=== PATIENT | female | born 1985 | race Caucasian/White ===

== ENCOUNTER 2018-05-16 17:48 | Inpatient (IN) | payer OTHER ==
[~2018-05-16] VITALS: Ht 170.2 cm; Wt 102.5 kg
[2018-05-17] MEDS ORDERED: D5%-LACTATED RINGERS 1,000 ML IV SCH (21:40)
[2018-05-17] MEDS ORDERED: OXYTOCIN 30U/ 0.9% NaCL 500ML 500 ML IV ONE (21:40)
[2018-05-17 21:52] VITALS: BP 120/86
[2018-05-17] MEDS ORDERED: PLEASE ENTER HEIGHT AND WEIGHT MC SCH (22:00)
[2018-05-17] MEDS ORDERED: FENTANYL PF 100 MCG/2ML IV PRN (22:00)
[2018-05-17] MEDS ORDERED: ONDANSETRON 2MG/ML, 2ML IVPush PRN (22:00)
[2018-05-17] MEDS ORDERED: ALUMINUM/MAG/SIMETHICONE 30 ML UDC PO PRN (22:00)
[2018-05-17] MEDS ORDERED: CALCIUM CARBONATE 500 MG TAB.CHEW PO PRN (22:00)
[2018-05-17] MEDS ORDERED: SODIUM CHLORIDE FLUSH 10ML SYR IVF PRN (22:00)
[2018-05-17] MEDS ORDERED: SODIUM CITRATE/CITRIC ACID 30 ML UDC PO PRN (22:00)
[2018-05-17] MEDS ORDERED: METOCLOPRAMIDE 5 MG/ML, 2ML IVPush PRN (22:00)
[2018-05-17 22:16] LABS: BASOPHILS # (AUTO) 0.07 x10^3/uL (0-0.1); BASOPHILS % (AUTO) 1 % (0-1); EOSINOPHILS # (AUTO) 0.05 x10^3/uL (0-0.4); EOSINOPHILS % (AUTO) 1 % (1-7); LYMPHOCYTES # (AUTO) 1.76 x10^3/uL (1-3.4); LYMPHOCYTES % (AUTO) 23 % (22-44); MD NO; MEAN CORPUSCULAR HEMOGLOBIN 30.5 pg (27.0-34.8); MEAN CORPUSCULAR HGB CONC 33.8 g/dL (32.4-35.8); MEAN CORPUSCULAR VOLUME 90.2 fL (80-100); MEAN PLATELET VOLUME 12.4 fL (7.4-10.4); MONOCYTES # (AUTO) 0.38 x10^3/uL (0.2-0.8); MONOCYTES % (AUTO) 5 % (2-9); NEUTROPHILS # (AUTO) 5.55 x10^3/uL (1.8-6.8); NEUTROPHILS % (AUTO) 71 % (42-75); PLATELET COUNT 168 x10^3/uL (130-400); RED BLOOD COUNT 4.26 x10^6/uL (3.82-5.3); RED CELL DISTRIBUTION WIDTH 12.6 % (9.6-15.2)
[2018-05-17] MEDS: LACTATED RINGERS 1,000 ML IV SCH (23:43)
[2018-05-18] MEDS ORDERED: MISOPROSTOL 25 MCG TABLET ONE ×3 (00:12→08:38)
[2018-05-18] MEDS: LACTATED RINGERS 1,000 ML IV SCH ×5 (04:25→21:26)
[2018-05-18] MEDS: MISOPROSTOL 25 MCG TABLET VG PRN ×2 (04:25→08:41)
[2018-05-18] MEDS ORDERED: OXYTOCIN 30U/ 0.9% NaCL 500ML 500 ML ONE (13:25)
[2018-05-18] MEDS ORDERED: OXYTOCIN 30U/ 0.9% NaCL 500ML 500 ML IV PRN (13:29)
[2018-05-18] MEDS ORDERED: FENTANYL PF 100 MCG/2ML ONE ×2 (17:50→19:07)
[2018-05-18] MEDS: FENTANYL PF 100 MCG/2ML IVPush PRN ×2 (17:51→19:09)
[2018-05-18] MEDS ORDERED: FENTANYL/BUPIV./NS/PF 250 ML EPIDCONT SCH (19:49)
[2018-05-18] MEDS ORDERED: FENTANYL/BUPIV./NS/PF 250 ML EPIDCONT ONE (19:56)
[2018-05-18] MEDS ORDERED: BUPIVACAINE/PF 0.25% ONE (19:56)
[2018-05-18] MEDS ORDERED: LACTATED RINGERS 1,000 ML IVBOLUS PRN (20:00)
[2018-05-18] MEDS ORDERED: EPHEDRINE 50 MG/ML, 1ML IVPush PRN (20:00)
[2018-05-18] MEDS ORDERED: NALOXONE 0.4 MG/ML, 1ML IVPush PRN (20:00)
[2018-05-19] MEDS: LACTATED RINGERS 1,000 ML IV SCH ×5 (01:36→19:16)
[2018-05-19] MEDS ORDERED: FENTANYL PF 100 MCG/2ML ONE ×2 (08:13→11:31)
[2018-05-19] MEDS ORDERED: BUPIVACAINE/PF 0.25% ONE (08:58)
[2018-05-19] MEDS ORDERED: OXYTOCIN 10 UNITS/ML, 1ML ONE (08:58)
[2018-05-19] MEDS ORDERED: WATER-INJECTION,STERILE 10 ML IV ONE (08:58)
[2018-05-19] MEDS ORDERED: LIDOCAINE-MPF 2% ,5ML ONE (08:58)
[2018-05-19] MEDS ORDERED: CEFAZOLIN 1,000 MG ONE (08:58)
[2018-05-19] MEDS ORDERED: PHENYLEPHRINE 10 MG/ML ONE (08:58)
[2018-05-19] MEDS ORDERED: EPHEDRINE 50 MG/ML, 1ML ONE (08:58)
[2018-05-19] MEDS ORDERED: morphine SULFATE/PF 0.5 MG/ML, 10ML ONE (08:59)
[2018-05-19] MEDS ORDERED: NEWBORN KIT ONE (09:02)
[2018-05-19] MEDS ORDERED: MEPERIDINE/PF 50 MG/ML ONE (09:12)
[2018-05-19] MEDS ORDERED: MISOPROSTOL 200 MCG TABLET PR PRN (09:30)
[2018-05-19] MEDS ORDERED: METOCLOPRAMIDE 5 MG/ML, 2ML IV PRN (09:30)
[2018-05-19] MEDS ORDERED: MEPERIDINE/PF 100 MG/ML IVPush PRN (09:30)
[2018-05-19] MEDS ORDERED: BISACODYL 10 MG SUPP PR PRN (09:30)
[2018-05-19] MEDS ORDERED: ACETAMINOPHEN 325 MG TABLET PO PRN (09:30)
[2018-05-19] MEDS ORDERED: CARBOPROST TROMETHAMINE 250 MCG/ML, 1ML IM PRN (09:30)
[2018-05-19] MEDS ORDERED: METHYLERGONOVINE 0.2 MG/ML IM PRN (09:30)
[2018-05-19] MEDS ORDERED: MEPERIDINE/PF 50 MG/ML IVPush PRN (09:30)
[2018-05-19] MEDS ORDERED: MEASLES,MUMPS&RUBELLA VACC/PF 0.5 ML SQ-VACC PRN (09:30)
[2018-05-19] MEDS ORDERED: DIPH,PERTUSS(ACELL),TET VAC/PF NC IM-VACC PRN (09:30)
[2018-05-19] MEDS ORDERED: GLYCERIN ADULT SUPP PR PRN (09:30)
[2018-05-19] MEDS ORDERED: ONDANSETRON 2MG/ML, 2ML IV PRN (09:30)
[2018-05-19] MEDS ORDERED: KETOROLAC 30 MG/1 ML ONE (10:32)
[2018-05-19] MEDS: KETOROLAC 30 MG/1 ML IV SCH ×3 (10:35→22:31)
[2018-05-19] MEDS: OXYTOCIN 30U/ 0.9% NaCL 500ML 500 ML IV SCH ×2 (10:36→19:16)
[2018-05-19 12:05] VITALS: BP 104/68
[2018-05-19] MEDS: OXYcodone/APAP 5/325MG TABLET PO PRN ×2 (13:54→19:58)
[2018-05-19 15:58] VITALS: BP 98/67
[2018-05-19 16:42] LABS: MEAN CORPUSCULAR HEMOGLOBIN 29.8 pg (27.0-34.8); MEAN CORPUSCULAR HGB CONC 33.1 g/dL (32.4-35.8); MEAN CORPUSCULAR VOLUME 89.9 fL (80-100); MEAN PLATELET VOLUME 11.8 fL (7.4-10.4); PLATELET COUNT 155 x10^3/uL (130-400); RED BLOOD COUNT 3.68 x10^6/uL (3.82-5.3); RED CELL DISTRIBUTION WIDTH 12.4 % (9.6-15.2)
[2018-05-19 16:59] LABS: MD YES
[2018-05-19 17:02] LABS: <PLATELET ESTIMATE> ADEQUATE; <RBC MORPHOLOGY> NORMAL; BAND#(MANUAL) 1.47 x10^3/uL; BANDS%(MANUAL) 10 % (0-7); LYMPH#(MANUAL) 0.88 x10^3/uL (1-3.4); LYMPHS% (MANUAL) 6 % (22-44); MONOS#(MANUAL) 0.59 x10^3/uL (0.3-2.7); MONOS% (MANUAL) 4 % (2-9); SEG#(MANUAL) 11.76 x10^3/uL (1.8-6.8); SEGS% (MANUAL) 80 % (42-75)
[2018-05-19 17:03] LABS: <PLT MORPHOLOGY> NORMAL PLT MORPH
[2018-05-19 19:55] VITALS: BP 108/75
[2018-05-20 00:05] VITALS: BP 103/66
[2018-05-20] MEDS: OXYcodone/APAP 5/325MG TABLET PO PRN ×4 (00:10→13:32)
[2018-05-20] MEDS: LACTATED RINGERS 1,000 ML IV SCH ×5 (01:16→17:16)
[2018-05-20] MEDS: KETOROLAC 30 MG/1 ML IV SCH ×4 (04:44→17:30)
[2018-05-20 04:45] VITALS: BP 99/66
[2018-05-20] MEDS: OXYTOCIN 30U/ 0.9% NaCL 500ML 500 ML IV SCH ×2 (05:16→15:16)
[2018-05-20 07:40] VITALS: BP 117/81
[2018-05-20] MEDS: PRENATAL VIT/IRON/FA 1 EACH TABLET PO SCH (09:12)
[2018-05-20] MEDS: DOCUSATE 100 MG CAPSULE PO PRN ×2 (09:12→23:56)
[2018-05-20] MEDS: IBUPROFEN 600 MG TABLET PO PRN ×2 (17:17→23:56)
[2018-05-20 20:00] VITALS: BP 119/80
[2018-05-21] MEDS: OXYTOCIN 30U/ 0.9% NaCL 500ML 500 ML IV SCH ×2 (01:16→11:16)
[2018-05-21] MEDS: LACTATED RINGERS 1,000 ML IV SCH ×4 (01:16→11:16)
[2018-05-21] MEDS: IBUPROFEN 600 MG TABLET PO PRN ×2 (06:19→12:39)
[2018-05-21] MEDS: OXYcodone/APAP 5/325MG TABLET PO PRN ×2 (06:19→12:39)
[2018-05-21 07:58] VITALS: BP 130/81
[2018-05-21] MEDS: PRENATAL VIT/IRON/FA 1 EACH TABLET PO SCH (08:52)
[2018-05-21] MEDS: DOCUSATE 100 MG CAPSULE PO PRN (08:52)
[2018-05-21] MEDS ORDERED: OXYC-302 PO (10:13)
[2018-05-21] MEDS ORDERED: IBUP-1222 PO (10:14)
== END 2018-05-21 12:55 | disposition home or self-care (01) | DRG 766 ==
LOC: LDIP 05-17 21:09 → 2NW 05-19 11:48
PROVIDERS: ADMIT Obstetrics & Gynecology; ATTEND Obstetrics & Gynecology
PROC: 10D00Z1 Extraction of Products of Conception, Low, Open Approach (ICD-10-PCS; principal; 2018-05-19)
DX: O24.420 Gestational diabetes mellitus in childbirth, diet controlled (principal); O62.1 Secondary uterine inertia; O76 Abnormality in fetal heart rate and rhythm complicating labor and delivery; Z37.0 Single live birth; Z3A.40 40 weeks gestation of pregnancy
CPT/HCPCS: 36415; 82803; 82947; 82962; 85025; 86850; 86900; 90715; J0690; J1885; J2175; J2274; J3010; J3490; J2370; J2590; J7120

== ENCOUNTER 2018-06-03 16:05 | Inpatient (IN) | payer OTHER ==
[~2018-06-03] VITALS: Ht 170.2 cm; Wt 97.0 kg
[~2018-06-03 16:05] MED LIST: IBUP-1222 PO; OXYC-302 PO
[2018-06-03] MEDS ORDERED: FAMOTIDINE 20 MG/2 ML ONE (16:43)
[2018-06-03] MEDS ORDERED: MAALOX/HYOSCYAMINE/LIDOCAINE 45 ML BTL ONE (16:43)
[2018-06-03] MEDS ORDERED: MORPHINE SULFATE 4 MG/ML, 1ML ONE ×2 (16:43→17:28)
[2018-06-03] MEDS ORDERED: ONDANSETRON ODT 4 MG ONE ×2 (16:44→16:45)
[2018-06-03] MEDS: MORPHINE SULFATE 4 MG/ML, 1ML IVPush PRN ×2 (16:51→17:37)
[2018-06-03 16:52] LABS: MEAN CORPUSCULAR HEMOGLOBIN 30.7 pg (27.0-34.8); MEAN CORPUSCULAR HGB CONC 34.3 g/dL (32.4-35.8); MEAN CORPUSCULAR VOLUME 89.4 fL (80-100); MEAN PLATELET VOLUME 9.3 fL (7.4-10.4); PLATELET COUNT 463 x10^3/uL (130-400); RED BLOOD COUNT 5.14 x10^6/uL (3.82-5.3); RED CELL DISTRIBUTION WIDTH 13.1 % (9.6-15.2)
[2018-06-03 16:53] LABS: MD YES
[2018-06-03 17:00] LABS: ALANINE AMINOTRANSFERASE 68 U/L (12-78); ALBUMIN 3.6 g/dL (3.4-5.0); ANION GAP 10 mmol/L (5-15); CALCIUM 8.9 mg/dL (8.5-10.1); CHLORIDE 107 mmol/L (98-107); CREATININE 1.03 mg/dL (0.55-1.02)
[2018-06-03] MEDS ORDERED: FAMOTIDINE 20 MG/2 ML IVP ONE (17:00)
[2018-06-03] MEDS ORDERED: ONDANSETRON ODT 4 MG PO ONE (17:00)
[2018-06-03] MEDS ORDERED: MAALOX/HYOSCYAMINE/LIDOCAINE 45 ML BTL PO ONE (17:00)
[2018-06-03] MEDS ORDERED: SODIUM CHLORIDE FLUSH 10ML SYR IVF ONE (17:00)
[2018-06-03 17:02] LABS: ALKALINE PHOSPHATASE 201 U/L (45-117); BILIRUBIN,TOTAL 1.4 mg/dL (0.2-1.0)
[2018-06-03 17:11] LABS: <PLATELET ESTIMATE> INCREASED; <PLT MORPHOLOGY> NORMAL PLT MORPH; <RBC MORPHOLOGY> NORMAL; BAND#(MANUAL) 1.86 x10^3/uL; BANDS%(MANUAL) 8 % (0-7); BASOS#(MANUAL) 0.23 x10^3/uL (0-0.1); BASOS% (MANUAL) 1 % (0-1); EOS#(MANUAL) 0.23 x10^3/uL (0.0-0.4); EOS% (MANUAL) 1 % (1-7); LYMPH#(MANUAL) 2.33 x10^3/uL (1-3.4); LYMPHS% (MANUAL) 10 % (22-44); MONOS#(MANUAL) 0.47 x10^3/uL (0.3-2.7); MONOS% (MANUAL) 2 % (2-9); SEG#(MANUAL) 18.17 x10^3/uL (1.8-6.8); SEGS% (MANUAL) 78 % (42-75)
[2018-06-03] MEDS ORDERED: HYDROmorphone 2 MG/ML, 1ML ONE (18:06)
[2018-06-03] MEDS ORDERED: HYDROmorphone 2 MG/ML, 1ML IVPush PRN (18:30)
[2018-06-03] MEDS ORDERED: BISACODYL 10 MG SUPP PR PRN (19:00)
[2018-06-03] MEDS: ONDANSETRON 2MG/ML, 2ML IVPush PRN (19:46)
[2018-06-03] MEDS: NS + 20MEQ KCL 1,000 ML IV SCH (19:46)
[2018-06-03] MEDS: HYDROmorphone 2 MG/ML, 1ML IVPush PRN ×3 (19:46→22:33)
[2018-06-03 22:12] LABS: CULTURE INDICATED? YES; MICROSCOPIC INDICATED
[2018-06-03] MEDS: PROMETHAZINE 25 MG/ML, 1ML IM PRN (22:31)
[2018-06-03 22:46] VITALS: BP 133/85
[2018-06-04] MEDS: HYDROmorphone 2 MG/ML, 1ML IVPush PRN ×10 (01:09→23:58)
[2018-06-04] MEDS: ONDANSETRON 2MG/ML, 2ML IVPush PRN ×4 (01:09→21:05)
[2018-06-04] MEDS: NS + 20MEQ KCL 1,000 ML IV SCH ×2 (01:11→05:45)
[2018-06-04 01:16] VITALS: BP 144/88
[2018-06-04] MEDS: PROMETHAZINE 25 MG/ML, 1ML IM PRN ×2 (02:07→11:22)
[2018-06-04 04:19] LABS: BASOPHILS # (AUTO) 0.01 x10^3/uL (0-0.1); BASOPHILS % (AUTO) 0 % (0-1); EOSINOPHILS % (AUTO) 0 % (1-7); LYMPHOCYTES # (AUTO) 0.64 x10^3/uL (1-3.4); LYMPHOCYTES % (AUTO) 5 % (22-44); MD NO; MEAN CORPUSCULAR HEMOGLOBIN 30.3 pg (27.0-34.8); MEAN CORPUSCULAR HGB CONC 33.4 g/dL (32.4-35.8); MEAN CORPUSCULAR VOLUME 90.7 fL (80-100); MEAN PLATELET VOLUME 9.2 fL (7.4-10.4); MONOCYTES # (AUTO) 0.42 x10^3/uL (0.2-0.8); MONOCYTES % (AUTO) 4 % (2-9); NEUTROPHILS # (AUTO) 10.73 x10^3/uL (1.8-6.8); NEUTROPHILS % (AUTO) 91 % (42-75); PLATELET COUNT 462 x10^3/uL (130-400); RED BLOOD COUNT 5.22 x10^6/uL (3.82-5.3)
[2018-06-04 04:30] LABS: ALBUMIN 3.2 g/dL (3.4-5.0); ANION GAP 7 mmol/L (5-15); CALCIUM 8.2 mg/dL (8.5-10.1); CHLORIDE 112 mmol/L (98-107)
[2018-06-04 04:35] LABS: ALANINE AMINOTRANSFERASE 88 U/L (12-78); ALKALINE PHOSPHATASE 214 U/L (45-117); BILIRUBIN,TOTAL 1.3 mg/dL (0.2-1.0); CHOL/HDL RATIO 6.3; CHOLESTEROL, TOTAL 271 mg/dL (140-239); CREATININE 1.06 mg/dL (0.55-1.02); HDL CHOL % 16 % (28-40); HDL CHOLESTEROL (DIRECT) 43 mg/dL (40-60); LDL CHOLESTEROL,CALCULATED 208 mg/dL (54-169); LDL/HDL RATIO 4.8 (0.5-3.0); TOTAL PROTEIN 7.2 g/dL (6.4-8.2); TRIGLYCERIDES 98 mg/dL (50-200); VLDL CHOLESTEROL 20 mg/dL (0-25)
[2018-06-04 07:42] VITALS: BP 145/88
[2018-06-04] MEDS: LACTATED RINGERS 1,000 ML IV SCH ×2 (12:09→18:01)
[2018-06-04 13:05] VITALS: BP 130/80
[2018-06-04 20:25] VITALS: BP 151/97
[2018-06-05 00:01] VITALS: BP 132/93
[2018-06-05] MEDS: LACTATED RINGERS 1,000 ML IV SCH ×4 (00:01→20:40)
[2018-06-05] MEDS: HYDROmorphone 2 MG/ML, 1ML IVPush PRN ×4 (02:54→12:09)
[2018-06-05] MEDS: ONDANSETRON 2MG/ML, 2ML IVPush PRN ×3 (02:54→20:11)
[2018-06-05 03:20] VITALS: BP 135/92
[2018-06-05 04:51] LABS: MEAN CORPUSCULAR HEMOGLOBIN 30.4 pg (27.0-34.8); MEAN CORPUSCULAR HGB CONC 33.3 g/dL (32.4-35.8); MEAN CORPUSCULAR VOLUME 91.5 fL (80-100); MEAN PLATELET VOLUME 10.1 fL (7.4-10.4); PLATELET COUNT 357 x10^3/uL (130-400); RED BLOOD COUNT 4.49 x10^6/uL (3.82-5.3); RED CELL DISTRIBUTION WIDTH 13.6 % (9.6-15.2)
[2018-06-05 05:03] LABS: ANION GAP 7 mmol/L (5-15); CALCIUM 7.9 mg/dL (8.5-10.1); CHLORIDE 109 mmol/L (98-107); CREATININE 0.76 mg/dL (0.55-1.02)
[2018-06-05 05:04] LABS: ALANINE AMINOTRANSFERASE 61 U/L (12-78); ALBUMIN 2.5 g/dL (3.4-5.0)
[2018-06-05 05:06] LABS: ALKALINE PHOSPHATASE 170 U/L (45-117); BILIRUBIN,TOTAL 0.7 mg/dL (0.2-1.0); TOTAL PROTEIN 5.9 g/dL (6.4-8.2)
[2018-06-05 05:16] LABS: MD YES
[2018-06-05 05:17] LABS: BAND#(MANUAL) 0.99 x10^3/uL; BANDS%(MANUAL) 5 % (0-7); LYMPH#(MANUAL) 0.99 x10^3/uL (1-3.4); LYMPHS% (MANUAL) 5 % (22-44); METAMYELOCYTES% (MANUAL) 2 % (0-1); MONOS% (MANUAL) 2 % (2-9); SEG#(MANUAL) 17.03 x10^3/uL (1.8-6.8); SEGS% (MANUAL) 86 % (42-75)
[2018-06-05 05:18] LABS: <PLATELET ESTIMATE> ADEQUATE; <PLT MORPHOLOGY> NORMAL PLT MORPH; <RBC MORPHOLOGY> NORMAL
[2018-06-05 07:11] VITALS: BP 132/87
[2018-06-05] MEDS ORDERED: PIPERACILLIN/TAZO/PMX 3.375GM 50 ML IV SCH (07:30)
[2018-06-05 09:19] VITALS: BP 132/89
[2018-06-05 11:57] LABS: MICROSCOPIC INDICATED
[2018-06-05 12:30] LABS: CULTURE INDICATED? NO
[2018-06-05 13:05] VITALS: BP 137/90
[2018-06-05] MEDS ORDERED: FENTANYL PF 100 MCG/2ML IVPush PRN (15:00)
[2018-06-05] MEDS: KETOROLAC 30 MG/1 ML IVPush PRN ×2 (15:06→20:40)
[2018-06-05] MEDS: ERTAPENEM 1 GM in SODIUM CHLORIDE 0.9% 50 ML IV SCH ×2 (15:27→16:02)
[2018-06-05] MEDS: INSULIN LISPRO 100 UNITS/ML, PEN SQ-INSULIN SCH ×2 (16:00→20:40)
[2018-06-05] MEDS: PENTOXIFYLLINE 400 MG TABLET.ER PO SCH ×2 (17:30→21:00)
[2018-06-05 19:38] VITALS: BP 124/84
[2018-06-06 01:02] VITALS: BP 127/87
[2018-06-06] MEDS: LACTATED RINGERS 1,000 ML IV SCH ×3 (02:27→22:29)
[2018-06-06] MEDS: KETOROLAC 30 MG/1 ML IVPush PRN ×2 (04:40→15:15)
[2018-06-06 04:44] LABS: MEAN CORPUSCULAR HEMOGLOBIN 30.1 pg (27.0-34.8); MEAN CORPUSCULAR HGB CONC 32.8 g/dL (32.4-35.8); MEAN CORPUSCULAR VOLUME 91.9 fL (80-100); MEAN PLATELET VOLUME 10.3 fL (7.4-10.4); PLATELET COUNT 279 x10^3/uL (130-400); RED BLOOD COUNT 4.04 x10^6/uL (3.82-5.3); RED CELL DISTRIBUTION WIDTH 13.8 % (9.6-15.2)
[2018-06-06 04:54] LABS: ANION GAP 5 mmol/L (5-15); CALCIUM 7.5 mg/dL (8.5-10.1); CHLORIDE 108 mmol/L (98-107)
[2018-06-06 04:57] LABS: ALANINE AMINOTRANSFERASE 33 U/L (12-78); ALKALINE PHOSPHATASE 128 U/L (45-117); BILIRUBIN,TOTAL 0.7 mg/dL (0.2-1.0); CREATININE 0.59 mg/dL (0.55-1.02); TOTAL PROTEIN 5.4 g/dL (6.4-8.2)
[2018-06-06 05:04] LABS: MD YES
[2018-06-06 05:06] LABS: <PLATELET ESTIMATE> ADEQUATE; <PLT MORPHOLOGY> NORMAL PLT MORPH; <RBC MORPHOLOGY> NORMAL; BAND#(MANUAL) 0.86 x10^3/uL; BANDS%(MANUAL) 5 % (0-7); LYMPH#(MANUAL) 0.69 x10^3/uL (1-3.4); LYMPHS% (MANUAL) 4 % (22-44); MONOS% (MANUAL) 7 % (2-9); SEG#(MANUAL) 14.45 x10^3/uL (1.8-6.8); SEGS% (MANUAL) 84 % (42-75)
[2018-06-06] MEDS ORDERED: POTASSIUM PHOSPHATE 44 MEQ in SODIUM CHLORIDE 0.9% 500 ML IV ONE (06:30)
[2018-06-06] MEDS: INSULIN LISPRO 100 UNITS/ML, PEN SQ-INSULIN SCH ×4 (07:00→20:39)
[2018-06-06] MEDS: PANTOPRAZOLE 40 MG IV IVPush SCH (07:53)
[2018-06-06] MEDS: PENTOXIFYLLINE 400 MG TABLET.ER PO SCH ×3 (07:55→20:45)
[2018-06-06 08:16] VITALS: BP 117/76
[2018-06-06] MEDS ORDERED: LACTATED RINGERS 1,000 ML IV SCH (12:00)
[2018-06-06 13:14] VITALS: BP 126/89
[2018-06-06 14:42] VITALS: BP 126/75
[2018-06-06] MEDS: ERTAPENEM 1 GM in SODIUM CHLORIDE 0.9% 50 ML IV SCH (15:44)
[2018-06-06] MEDS ORDERED: LACTATED RINGERS 500 ML IVBOLUS ONE (19:00)
[2018-06-06 19:37] VITALS: BP 125/77
[2018-06-06 22:25] VITALS: BP 118/72
[2018-06-06] MEDS: ACETAMINOPHEN 325 MG TABLET PO PRN (22:46)
[2018-06-07 02:05] VITALS: BP 115/75
[2018-06-07] MEDS: ONDANSETRON 2MG/ML, 2ML IVPush PRN ×2 (02:16→20:50)
[2018-06-07] MEDS: LACTATED RINGERS 1,000 ML IV SCH ×5 (02:18→20:46)
[2018-06-07 02:49] LABS: CLOSTRIDIUM DIFFICILE ANTIGEN NEGATIVE; CLOSTRIDIUM DIFFICILE TOXIN NEGATIVE (Negative)
[2018-06-07 05:08] LABS: MEAN CORPUSCULAR HEMOGLOBIN 29.8 pg (27.0-34.8); MEAN CORPUSCULAR HGB CONC 33.1 g/dL (32.4-35.8); MEAN CORPUSCULAR VOLUME 90.1 fL (80-100); MEAN PLATELET VOLUME 9.8 fL (7.4-10.4); PLATELET COUNT 277 x10^3/uL (130-400); RED BLOOD COUNT 3.73 x10^6/uL (3.82-5.3); RED CELL DISTRIBUTION WIDTH 13.6 % (9.6-15.2)
[2018-06-07 05:16] LABS: ALANINE AMINOTRANSFERASE 21 U/L (12-78); ALBUMIN 1.7 g/dL (3.4-5.0); ANION GAP 7 mmol/L (5-15); CALCIUM 7.2 mg/dL (8.5-10.1); CHLORIDE 108 mmol/L (98-107); CREATININE 0.45 mg/dL (0.55-1.02)
[2018-06-07 05:18] LABS: ALKALINE PHOSPHATASE 100 U/L (45-117); BILIRUBIN,TOTAL 0.6 mg/dL (0.2-1.0)
[2018-06-07 05:27] LABS: MD YES
[2018-06-07 05:29] LABS: <PLATELET ESTIMATE> ADEQUATE; <PLT MORPHOLOGY> NORMAL PLT MORPH; <RBC MORPHOLOGY> NORMAL; BAND#(MANUAL) 0.28 x10^3/uL; BANDS%(MANUAL) 2 % (0-7); LYMPH#(MANUAL) 1.14 x10^3/uL (1-3.4); LYMPHS% (MANUAL) 8 % (22-44); METAMYELOCYTES# (MANUAL) 0.14 x10^3/uL (0-0); METAMYELOCYTES% (MANUAL) 1 % (0-1); MONOS#(MANUAL) 0.43 x10^3/uL (0.3-2.7); MONOS% (MANUAL) 3 % (2-9); SEG#(MANUAL) 12.21 x10^3/uL (1.8-6.8); SEGS% (MANUAL) 86 % (42-75)
[2018-06-07] MEDS: INSULIN LISPRO 100 UNITS/ML, PEN SQ-INSULIN SCH ×4 (07:00→21:00)
[2018-06-07 07:30] VITALS: BP 124/77
[2018-06-07] MEDS: PENTOXIFYLLINE 400 MG TABLET.ER PO SCH (08:20)
[2018-06-07] MEDS: PANTOPRAZOLE 40 MG IV IVPush SCH (08:25)
[2018-06-07 12:58] VITALS: BP 119/75
[2018-06-07] MEDS: ERTAPENEM 1 GM in SODIUM CHLORIDE 0.9% 50 ML IV SCH (16:48)
[2018-06-07] MEDS: ENOXAPARIN 40 MG/0.4 ML SQ SCH (16:49)
[2018-06-07 20:11] VITALS: BP 119/72
[2018-06-07] MEDS: FAMOTIDINE 20 MG/2 ML IVPush SCH (20:50)
[2018-06-07] MEDS: ACETAMINOPHEN 325 MG TABLET PO PRN ×2 (20:50→22:40)
[2018-06-07] MEDS ORDERED: POTASSIUM PHOSPHATE 22 MEQ in SODIUM CHLORIDE 0.9% 500 ML IV ONE (22:00)
[2018-06-07] MEDS ORDERED: POTASSIUM CHLORIDE 10% 40 MEQ/30 ML UDC PO ONE (22:00)
[2018-06-07] MEDS: PROMETHAZINE 25 MG/ML, 1ML IM PRN (23:25)
[2018-06-08 01:31] VITALS: BP 115/75
[2018-06-08 04:42] LABS: ALBUMIN 1.7 g/dL (3.4-5.0); ANION GAP 6 mmol/L (5-15); CALCIUM 7.6 mg/dL (8.5-10.1); CHLORIDE 109 mmol/L (98-107); MEAN CORPUSCULAR HEMOGLOBIN 28.9 pg (27.0-34.8); MEAN CORPUSCULAR HGB CONC 32.5 g/dL (32.4-35.8); MEAN PLATELET VOLUME 10.4 fL (7.4-10.4); PLATELET COUNT 313 x10^3/uL (130-400); RED BLOOD COUNT 3.55 x10^6/uL (3.82-5.3); RED CELL DISTRIBUTION WIDTH 13.2 % (9.6-15.2)
[2018-06-08 04:46] LABS: ALANINE AMINOTRANSFERASE 19 U/L (12-78); ALKALINE PHOSPHATASE 94 U/L (45-117); BILIRUBIN,TOTAL 0.5 mg/dL (0.2-1.0); CREATININE 0.52 mg/dL (0.55-1.02); TOTAL PROTEIN 5.1 g/dL (6.4-8.2)
[2018-06-08 05:33] LABS: MD YES
[2018-06-08 05:36] LABS: <PLATELET ESTIMATE> ADEQUATE; <PLT MORPHOLOGY> NORMAL PLT MORPH; <RBC MORPHOLOGY> NORMAL; BAND#(MANUAL) 0.42 x10^3/uL; BANDS%(MANUAL) 3 % (0-7); LYMPHS% (MANUAL) 10 % (22-44); METAMYELOCYTES# (MANUAL) 0.14 x10^3/uL (0-0); METAMYELOCYTES% (MANUAL) 1 % (0-1); MONOS#(MANUAL) 0.84 x10^3/uL (0.3-2.7); MONOS% (MANUAL) 6 % (2-9); SEGS% (MANUAL) 80 % (42-75)
[2018-06-08 07:40] VITALS: BP 114/74
[2018-06-08] MEDS ORDERED: POTASSIUM PHOSPHATE 44 MEQ in SODIUM CHLORIDE 0.9% 500 ML IV ONE (08:00)
[2018-06-08] MEDS: SODIUM CHLORIDE 0.9% 1,000 ML IV SCH ×2 (08:24→16:32)
[2018-06-08] MEDS: FAMOTIDINE 20 MG/2 ML IVPush SCH ×2 (08:24→21:29)
[2018-06-08 13:29] VITALS: BP 115/71
[2018-06-08] MEDS ORDERED: LACTATED RINGERS 1,000 ML IV SCH (15:00)
[2018-06-08] MEDS: ERTAPENEM 1 GM in SODIUM CHLORIDE 0.9% 50 ML IV SCH (15:22)
[2018-06-08] MEDS: ENOXAPARIN 40 MG/0.4 ML SQ SCH (15:49)
[2018-06-08] MEDS ORDERED: SCOPOLAMINE PATCH, 1.5MG PATCH.TD72 TD ONE (16:12)
[2018-06-08] MEDS ORDERED: ACETAMINOPHEN 500 MG TABLET ONE (16:12)
[2018-06-08] MEDS ORDERED: MIDAZOLAM 1 MG/ML, 2ML ONE (16:20)
[2018-06-08] MEDS ORDERED: FENTANYL PF 250 MCG/5ML ONE (16:20)
[2018-06-08] MEDS ORDERED: ROCURONIUM 10MG/ML,5ML ONE (16:21)
[2018-06-08] MEDS ORDERED: SUCCINYLCHOLINE 20 MG/ML, 10ML ONE (16:21)
[2018-06-08] MEDS ORDERED: DEXAMETHASONE 4 MG/ML, 1ML ONE (16:21)
[2018-06-08] MEDS ORDERED: LIDOCAINE GEL 2%, 5ML ONE (16:22)
[2018-06-08] MEDS ORDERED: BUPIVACAINE/PF-EPI 0.5% 1:200K ONE (16:23)
[2018-06-08] MEDS ORDERED: PROPOFOL 10 MG/ML, 20ML ONE (16:28)
[2018-06-08] MEDS ORDERED: PHENYLEPHRINE 10 MG/ML ONE (16:28)
[2018-06-08] MEDS ORDERED: NEOSTIGMINE 1 MG/ML, 10ML ONE (16:28)
[2018-06-08] MEDS ORDERED: GLYCOPYRROLATE 0.2MG/1ML, 5ML ONE (16:28)
[2018-06-08] MEDS ORDERED: BUPIVACAINE/PF-EPI 0.5% 1:200K INFIL ONE (16:52)
[2018-06-08] MEDS ORDERED: LORazepam 2 MG/ML, 1ML ONE (17:38)
[2018-06-08] MEDS: LORazepam 2 MG/ML, 1ML IVPush PRN ×2 (17:40→17:50)
[2018-06-08] MEDS ORDERED: PROMETHAZINE 12.5 MG SUPP PR PRN (18:00)
[2018-06-08] MEDS ORDERED: MEPERIDINE/PF 25MG/0.5ML IVPush PRN (18:00)
[2018-06-08] MEDS ORDERED: hydrALAzine 20 MG/ML, 1ML IV PRN (18:00)
[2018-06-08] MEDS ORDERED: ONDANSETRON ODT 8 MG PO PRN (18:00)
[2018-06-08] MEDS ORDERED: PROMETHAZINE 25 MG/ML, 1ML IV PRN (18:00)
[2018-06-08] MEDS ORDERED: OXYcodone 5 MG/5 ML ORAL.SOL UDC PO PRN (18:00)
[2018-06-08] MEDS ORDERED: ALBUTEROL SULFATE 2.5 MG/3 ML NPPB PRN (18:00)
[2018-06-08] MEDS ORDERED: DIAZEPAM 5 MG/ML, 2ML IVPush PRN (18:00)
[2018-06-08] MEDS ORDERED: ONDANSETRON 2MG/ML, 2ML IV PRN (18:00)
[2018-06-08] MEDS ORDERED: LABETALOL 5MG/ML, 20ML IV PRN (18:00)
[2018-06-08] MEDS ORDERED: HYDROmorphone 1 MG/ML, 1ML IV PRN (18:00)
[2018-06-08] MEDS ORDERED: FENTANYL PF 100 MCG/2ML IV PRN (18:00)
[2018-06-08] MEDS ORDERED: MIDAZOLAM 1 MG/ML, 2ML IV PRN (18:00)
[2018-06-08] MEDS ORDERED: OXYcodone IR 5MG TABLET PO PRN (19:00)
[2018-06-08] MEDS: ACETAMINOPHEN 500 MG TABLET PO SCH (19:00)
[2018-06-09] MEDS: ACETAMINOPHEN 500 MG TABLET PO SCH ×4 (01:00→18:34)
[2018-06-09] MEDS: SODIUM CHLORIDE 0.9% 1,000 ML IV SCH ×2 (04:00→15:40)
[2018-06-09 04:31] LABS: MEAN CORPUSCULAR HGB CONC 32.7 g/dL (32.4-35.8); MEAN CORPUSCULAR VOLUME 88.7 fL (80-100); MEAN PLATELET VOLUME 9.7 fL (7.4-10.4); PLATELET COUNT 391 x10^3/uL (130-400); RED BLOOD COUNT 3.64 x10^6/uL (3.82-5.3)
[2018-06-09 04:41] LABS: ALANINE AMINOTRANSFERASE 32 U/L (12-78); ALBUMIN 1.7 g/dL (3.4-5.0); ANION GAP 6 mmol/L (5-15); CALCIUM 7.6 mg/dL (8.5-10.1); CHLORIDE 110 mmol/L (98-107); CREATININE 0.42 mg/dL (0.55-1.02)
[2018-06-09 04:43] LABS: ALKALINE PHOSPHATASE 108 U/L (45-117); BILIRUBIN,TOTAL 0.4 mg/dL (0.2-1.0); TOTAL PROTEIN 5.4 g/dL (6.4-8.2)
[2018-06-09 05:42] LABS: MD YES
[2018-06-09 05:45] LABS: <PLATELET ESTIMATE> ADEQUATE; <PLT MORPHOLOGY> NORMAL PLT MORPH; <RBC MORPHOLOGY> NORMAL; BAND#(MANUAL) 0.34 x10^3/uL; BANDS%(MANUAL) 2 % (0-7); LYMPH#(MANUAL) 0.34 x10^3/uL (1-3.4); LYMPHS% (MANUAL) 2 % (22-44); MONOS#(MANUAL) 1.03 x10^3/uL (0.3-2.7); MONOS% (MANUAL) 6 % (2-9); SEG#(MANUAL) 15.48 x10^3/uL (1.8-6.8); SEGS% (MANUAL) 90 % (42-75)
[2018-06-09] MEDS ORDERED: POTASSIUM CHLORIDE 20 MEQ TAB.ER.PRT PO ONE (07:30)
[2018-06-09] MEDS: IBUPROFEN 800 MG TABLET PO SCH ×3 (09:59→16:40)
[2018-06-09] MEDS: FAMOTIDINE 20 MG/2 ML IVPush SCH ×2 (10:00→22:18)
[2018-06-09 13:25] VITALS: BP 108/71
[2018-06-09] MEDS: ERTAPENEM 1 GM in SODIUM CHLORIDE 0.9% 50 ML IV SCH (15:39)
[2018-06-09] MEDS: ENOXAPARIN 40 MG/0.4 ML SQ SCH (15:40)
[2018-06-09 20:02] VITALS: BP 106/73
[2018-06-10] MEDS: ACETAMINOPHEN 500 MG TABLET PO SCH ×3 (01:00→12:01)
[2018-06-10 01:56] VITALS: BP 105/70
[2018-06-10 05:16] LABS: BASOPHILS # (AUTO) 0.09 x10^3/uL (0-0.1); BASOPHILS % (AUTO) 1 % (0-1); EOSINOPHILS # (AUTO) 0.09 x10^3/uL (0-0.4); EOSINOPHILS % (AUTO) 1 % (1-7); LYMPHOCYTES # (AUTO) 1.25 x10^3/uL (1-3.4); LYMPHOCYTES % (AUTO) 8 % (22-44); MD NO; MEAN CORPUSCULAR HGB CONC 33.8 g/dL (32.4-35.8); MEAN CORPUSCULAR VOLUME 88.7 fL (80-100); MEAN PLATELET VOLUME 9.6 fL (7.4-10.4); MONOCYTES # (AUTO) 1.04 x10^3/uL (0.2-0.8); MONOCYTES % (AUTO) 7 % (2-9); NEUTROPHILS # (AUTO) 12.68 x10^3/uL (1.8-6.8); NEUTROPHILS % (AUTO) 84 % (42-75); PLATELET COUNT 412 x10^3/uL (130-400); RED CELL DISTRIBUTION WIDTH 14.3 % (9.6-15.2)
[2018-06-10 05:25] LABS: CHLORIDE 109 mmol/L (98-107)
[2018-06-10] MEDS: IBUPROFEN 800 MG TABLET PO SCH ×2 (05:58→12:01)
[2018-06-10 06:00] LABS: ALANINE AMINOTRANSFERASE 28 U/L (12-78); ALBUMIN 1.7 g/dL (3.4-5.0); ALKALINE PHOSPHATASE 105 U/L (45-117); ANION GAP 6 mmol/L (5-15); BILIRUBIN,TOTAL 0.4 mg/dL (0.2-1.0); CALCIUM 7.3 mg/dL (8.5-10.1); TOTAL PROTEIN 4.8 g/dL (6.4-8.2)
[2018-06-10] MEDS ORDERED: POTASSIUM CHLORIDE 20 MEQ TAB.ER.PRT PO ONE (07:30)
[2018-06-10 08:01] VITALS: BP 101/67
[2018-06-10] MEDS: FAMOTIDINE 20 MG/2 ML IVPush SCH (08:07)
[2018-06-10] MEDS: SODIUM CHLORIDE 0.9% 1,000 ML IV SCH (08:08)
[2018-06-10 12:35] VITALS: BP 106/71
== END 2018-06-10 13:58 | disposition home or self-care (01) | DRG 769 ==
LOC: ED 17:34 → EDIP 18:00 → 3NW 18:38 → CCU 06-08 18:14 → 4NOR 06-09 13:32
PROVIDERS: ADMIT Hospitalist; ATTEND Hospitalist
PROC: 0T9B70Z Drainage of Bladder with Drainage Device, Via Natural or Artificial Opening (ICD-10-PCS; 2018-06-05)
PROC: 0FT44ZZ Resection of Gallbladder, Percutaneous Endoscopic Approach (ICD-10-PCS; principal; 2018-06-08 17:30)
DX: O99.63 Diseases of the digestive system complicating the puerperium (principal); K85.10 Biliary acute pancreatitis without necrosis or infection; E43 Unspecified severe protein-calorie malnutrition; J96.00 Acute respiratory failure, unspecified whether with hypoxia or hypercapnia; J98.11 Atelectasis; K56.7 Ileus, unspecified; R18.8 Other ascites; R79.89 Other specified abnormal findings of blood chemistry; O24.439 Gestational diabetes mellitus in the puerperium, unspecified control; R33.9 Retention of urine, unspecified; R65.10 Systemic inflammatory response syndrome (SIRS) of non-infectious origin without acute organ dysfunction; O99.285 Endocrine, nutritional and metabolic diseases complicating the puerperium; O25.3 Malnutrition in the puerperium; O99.53 Diseases of the respiratory system complicating the puerperium; E78.5 Hyperlipidemia, unspecified; E87.5 Hyperkalemia; K21.9 Gastro-esophageal reflux disease without esophagitis; Z68.33 Body mass index [BMI] 33.0-33.9, adult; D72.825 Bandemia
CPT/HCPCS: 36415; 99291; J3490; S0028; 71045; 74181; 76700; 80053; 80061; 81001; 82330; 82962; 83605; 83615; 83690; 83735; 84100; 85025; 87040; 87070; 87075; 87081; 87086; 87205; 87324; 88304; 93005; 93970; 96374; 96375; 96376; J1100; J1170; J1335; J1650; J1885; J2250; J2405; J2543; J2550; J2704; J2710; J3010; J3480; J7120; Q0162; C9113; J0330; J2060; J2370; J7030; J7040

== ENCOUNTER 2018-06-16 09:24 | Inpatient (IN) | payer OTHER ==
[~2018-06-16] VITALS: Ht 170.2 cm; Wt 100.9 kg
[2018-06-16] MEDS ORDERED: MORPHINE SULFATE 4 MG/ML, 1ML IVPush ONE (10:30)
[2018-06-16] MEDS ORDERED: SODIUM CHLORIDE FLUSH 10ML SYR IVF ONE (10:30)
[2018-06-16] MEDS ORDERED: SODIUM CHLORIDE 0.9% 1,000ML IVBOLUS ONE ×2 (10:30→12:00)
[2018-06-16] MEDS ORDERED: ONDANSETRON 2MG/ML, 2ML IVPush ONE (10:30)
[2018-06-16 10:35] LABS: MEAN CORPUSCULAR HEMOGLOBIN 29.4 pg (27.0-34.8); MEAN CORPUSCULAR HGB CONC 33.6 g/dL (32.4-35.8); MEAN CORPUSCULAR VOLUME 87.7 fL (80-100); RED CELL DISTRIBUTION WIDTH 14.6 % (9.6-15.2)
[2018-06-16 10:38] LABS: ALANINE AMINOTRANSFERASE 20 U/L (12-78); ALBUMIN 2.5 g/dL (3.4-5.0); ANION GAP 11 mmol/L (5-15); CALCIUM 8.7 mg/dL (8.5-10.1); CHLORIDE 103 mmol/L (98-107); CREATININE 0.57 mg/dL (0.55-1.02)
[2018-06-16] MEDS ORDERED: MORPHINE SULFATE 4 MG/ML, 1ML ONE (10:38)
[2018-06-16] MEDS ORDERED: ONDANSETRON 2MG/ML, 2ML ONE (10:38)
[2018-06-16 10:39] LABS: MD YES; MEAN PLATELET VOLUME 9.2 fL (7.4-10.4); PLATELET COUNT 506 x10^3/uL (130-400)
[2018-06-16 10:40] LABS: BAND#(MANUAL) 0.68 x10^3/uL; BANDS%(MANUAL) 4 % (0-7); EOS#(MANUAL) 0.17 x10^3/uL (0.0-0.4); EOS% (MANUAL) 1 % (1-7); LYMPH#(MANUAL) 2.21 x10^3/uL (1-3.4); LYMPHS% (MANUAL) 13 % (22-44); METAMYELOCYTES# (MANUAL) 0.17 x10^3/uL (0-0); METAMYELOCYTES% (MANUAL) 1 % (0-1); MONOS#(MANUAL) 0.34 x10^3/uL (0.3-2.7); MONOS% (MANUAL) 2 % (2-9); SEG#(MANUAL) 13.43 x10^3/uL (1.8-6.8); SEGS% (MANUAL) 79 % (42-75)
[2018-06-16 10:41] LABS: <RBC MORPHOLOGY> NORMAL; ALKALINE PHOSPHATASE 170 U/L (45-117); BILIRUBIN,TOTAL 0.5 mg/dL (0.2-1.0); TOTAL PROTEIN 7.6 g/dL (6.4-8.2)
[2018-06-16 10:42] LABS: <PLATELET ESTIMATE> INCREASED; <PLT MORPHOLOGY> NORMAL PLT MORPH
[2018-06-16] MEDS ORDERED: OMNIPAQUE 350 MG/ML, 100ML BOTTLE ONE (11:15)
[2018-06-16 12:03] LABS: MICROSCOPIC NOT IND
[2018-06-16 12:06] LABS: CULTURE INDICATED? NO
[2018-06-16 12:40] VITALS: BP 114/80
[2018-06-16] MEDS ORDERED: D5%-0.45% NACL 1,000 ML IV SCH (13:37)
[2018-06-16] MEDS ORDERED: ONDANSETRON 2MG/ML, 2ML IVPush PRN (14:00)
[2018-06-16] MEDS: CEFTRIAXONE 1,000 MG in SODIUM CHLORIDE 0.9% 50 ML IV SCH (14:26)
[2018-06-16] MEDS ORDERED: KETOROLAC 30 MG/1 ML IV ONE (14:30)
[2018-06-16] MEDS: HYDROmorphone 2 MG/ML, 1ML IVPush PRN ×2 (16:18→19:48)
[2018-06-16] MEDS: METRONIDAZOLE PMX 500MG/100ML 100 ML IV SCH (16:53)
[2018-06-16] MEDS: POTASSIUM CHLORIDE 10 MEQ in LACTATED RINGERS 1,000 ML IV SCH ×2 (18:39→22:19)
[2018-06-16 20:02] VITALS: BP 111/78
[2018-06-16] MEDS: FAMOTIDINE 20 MG/2 ML IVPush SCH (21:03)
[2018-06-17] MEDS: HYDROmorphone 2 MG/ML, 1ML IVPush PRN ×4 (00:34→12:23)
[2018-06-17] MEDS: POTASSIUM CHLORIDE 10 MEQ in LACTATED RINGERS 1,000 ML IV SCH ×4 (01:52→20:20)
[2018-06-17] MEDS: METRONIDAZOLE PMX 500MG/100ML 100 ML IV SCH ×3 (01:52→20:20)
[2018-06-17 01:59] VITALS: BP 101/68
[2018-06-17 07:20] VITALS: BP 109/72
[2018-06-17] MEDS ORDERED: FENTANYL PF 250 MCG/5ML ONE (07:55)
[2018-06-17] MEDS ORDERED: MIDAZOLAM 1 MG/ML, 2ML ONE (07:55)
[2018-06-17] MEDS ORDERED: INDOMETHACIN 50 MG SUPP.RECT ONE (09:54)
[2018-06-17] MEDS ORDERED: MEPERIDINE/PF 25MG/0.5ML IVPush PRN (10:00)
[2018-06-17] MEDS ORDERED: OXYcodone 5 MG/5 ML ORAL.SOL UDC PO PRN (10:00)
[2018-06-17] MEDS ORDERED: HYDROmorphone 1 MG/ML, 1ML IV PRN (10:00)
[2018-06-17] MEDS ORDERED: ONDANSETRON 2MG/ML, 2ML IVPush PRN (10:00)
[2018-06-17] MEDS ORDERED: hydrALAzine 20 MG/ML, 1ML IV PRN (10:00)
[2018-06-17] MEDS ORDERED: METOCLOPRAMIDE 5 MG/ML, 2ML IV PRN (10:00)
[2018-06-17] MEDS ORDERED: PROMETHAZINE 25 MG/ML, 1ML IV PRN (10:00)
[2018-06-17] MEDS ORDERED: KETOROLAC 30 MG/1 ML IV PRN (10:00)
[2018-06-17] MEDS ORDERED: ALBUTEROL SULFATE 2.5 MG/3 ML NPPB PRN (10:00)
[2018-06-17] MEDS ORDERED: LABETALOL 5MG/ML, 20ML IV PRN (10:00)
[2018-06-17] MEDS ORDERED: OMNIPAQUE 350 MG/ML, 50 ML BOTTLE ONE (10:10)
[2018-06-17] MEDS: FENTANYL PF 100 MCG/2ML IV PRN ×2 (10:25→10:40)
[2018-06-17] MEDS ORDERED: INDOMETHACIN 50 MG SUPP.RECT PR ONE (10:30)
[2018-06-17] MEDS ORDERED: LACTATED RINGERS 1,000 ML IVBOLUS ONE ×2 (10:30→11:30)
[2018-06-17] MEDS ORDERED: OXYcodone 5 MG/5 ML ORAL.SOL UDC ONE (10:36)
[2018-06-17] MEDS ORDERED: FENTANYL PF 100 MCG/2ML ONE (10:36)
[2018-06-17] MEDS ORDERED: DEXAMETHASONE 4 MG/ML, 1ML ONE (11:07)
[2018-06-17] MEDS ORDERED: ONDANSETRON 2MG/ML, 2ML ONE (11:07)
[2018-06-17] MEDS ORDERED: PROPOFOL 10 MG/ML, 20ML ONE (11:07)
[2018-06-17] MEDS ORDERED: SUCCINYLCHOLINE 20 MG/ML, 10ML ONE (11:07)
[2018-06-17] MEDS ORDERED: ROCURONIUM 10MG/ML,5ML ONE (11:07)
[2018-06-17] MEDS: FAMOTIDINE 20 MG/2 ML IVPush SCH ×2 (11:26→23:50)
[2018-06-17] MEDS ORDERED: D5%-0.45% NACL 1,000 ML IV SCH (13:37)
[2018-06-17] MEDS: CEFTRIAXONE 1,000 MG in SODIUM CHLORIDE 0.9% 50 ML IV SCH (14:09)
[2018-06-17 14:15] VITALS: BP 107/67
[2018-06-17 19:05] VITALS: BP 105/72
[2018-06-18] MEDS ORDERED: HYDROcodone/APAP 5/325 TABLET PO PRN
[2018-06-18 03:59] VITALS: BP 110/64
[2018-06-18] MEDS: METRONIDAZOLE PMX 500MG/100ML 100 ML IV SCH ×3 (04:19→19:48)
[2018-06-18 05:33] LABS: MEAN CORPUSCULAR HEMOGLOBIN 29.4 pg (27.0-34.8); MEAN CORPUSCULAR HGB CONC 33.2 g/dL (32.4-35.8); MEAN CORPUSCULAR VOLUME 88.4 fL (80-100); MEAN PLATELET VOLUME 9.3 fL (7.4-10.4); PLATELET COUNT 414 x10^3/uL (130-400); RED BLOOD COUNT 3.17 x10^6/uL (3.82-5.3); RED CELL DISTRIBUTION WIDTH 14.1 % (9.6-15.2)
[2018-06-18 05:40] LABS: ALBUMIN 1.7 g/dL (3.4-5.0); ANION GAP 6 mmol/L (5-15); CHLORIDE 106 mmol/L (98-107)
[2018-06-18 05:42] LABS: ALANINE AMINOTRANSFERASE 13 U/L (12-78); ALKALINE PHOSPHATASE 130 U/L (45-117); BILIRUBIN,TOTAL 0.3 mg/dL (0.2-1.0); CREATININE 0.55 mg/dL (0.55-1.02); TOTAL PROTEIN 5.4 g/dL (6.4-8.2)
[2018-06-18 05:56] LABS: BASOPHILS # (AUTO) 0.08 x10^3/uL (0-0.1); BASOPHILS % (AUTO) 1 % (0-1); EOSINOPHILS # (AUTO) 0.12 x10^3/uL (0-0.4); EOSINOPHILS % (AUTO) 1 % (1-7); LYMPHOCYTES # (AUTO) 1.84 x10^3/uL (1-3.4); LYMPHOCYTES % (AUTO) 10 % (22-44); MD SCAN; MONOCYTES # (AUTO) 0.88 x10^3/uL (0.2-0.8); MONOCYTES % (AUTO) 5 % (2-9); NEUTROPHILS # (AUTO) 15.88 x10^3/uL (1.8-6.8); NEUTROPHILS % (AUTO) 85 % (42-75)
[2018-06-18 06:48] VITALS: BP 101/65
[2018-06-18] MEDS: FAMOTIDINE 20 MG/2 ML IVPush SCH ×2 (09:56→21:34)
[2018-06-18] MEDS: POTASSIUM CHLORIDE 10 MEQ in LACTATED RINGERS 1,000 ML IV SCH (09:56)
[2018-06-18 12:21] VITALS: BP 107/73
[2018-06-18] MEDS: CEFTRIAXONE 1,000 MG in SODIUM CHLORIDE 0.9% 50 ML IV SCH (14:51)
[2018-06-18 19:00] VITALS: BP 114/78
[2018-06-18] MEDS: SODIUM CHLORIDE FLUSH 10ML SYR IVF SCH (21:44)
[2018-06-19 03:27] VITALS: BP 94/59
[2018-06-19] MEDS: METRONIDAZOLE PMX 500MG/100ML 100 ML IV SCH ×2 (04:42→12:55)
[2018-06-19 05:40] LABS: BASOPHILS # (AUTO) 0.09 x10^3/uL (0-0.1); BASOPHILS % (AUTO) 1 % (0-1); EOSINOPHILS # (AUTO) 0.16 x10^3/uL (0-0.4); EOSINOPHILS % (AUTO) 1 % (1-7); LYMPHOCYTES # (AUTO) 2.14 x10^3/uL (1-3.4); LYMPHOCYTES % (AUTO) 13 % (22-44); MD NO; MEAN CORPUSCULAR HEMOGLOBIN 28.8 pg (27.0-34.8); MEAN CORPUSCULAR HGB CONC 32.9 g/dL (32.4-35.8); MEAN CORPUSCULAR VOLUME 87.4 fL (80-100); MONOCYTES # (AUTO) 0.81 x10^3/uL (0.2-0.8); MONOCYTES % (AUTO) 5 % (2-9); NEUTROPHILS % (AUTO) 80 % (42-75); PLATELET COUNT 455 x10^3/uL (130-400); RED BLOOD COUNT 2.97 x10^6/uL (3.82-5.3); RED CELL DISTRIBUTION WIDTH 14.6 % (9.6-15.2)
[2018-06-19 05:49] LABS: CHLORIDE 105 mmol/L (98-107)
[2018-06-19 05:58] LABS: ALANINE AMINOTRANSFERASE 10 U/L (12-78); ALBUMIN 1.6 g/dL (3.4-5.0); ALKALINE PHOSPHATASE 111 U/L (45-117); ANION GAP 8 mmol/L (5-15); BILIRUBIN,TOTAL 0.5 mg/dL (0.2-1.0); CALCIUM 7.8 mg/dL (8.5-10.1); CREATININE 0.63 mg/dL (0.55-1.02); TOTAL PROTEIN 5.3 g/dL (6.4-8.2)
[2018-06-19 07:52] VITALS: BP 123/81
[2018-06-19] MEDS: FAMOTIDINE 20 MG/2 ML IVPush SCH (09:02)
[2018-06-19] MEDS: SODIUM CHLORIDE FLUSH 10ML SYR IVF SCH (09:03)
[2018-06-19 13:01] VITALS: BP 107/71
[2018-06-19] MEDS ORDERED: CEFD300C37 PO (13:53)
[2018-06-19] MEDS ORDERED: TRAM50TA2 PO (13:53)
[2018-06-19] MEDS ORDERED: METR500T PO (13:53)
[2018-06-19] MEDS: CEFTRIAXONE 1,000 MG in SODIUM CHLORIDE 0.9% 50 ML IV SCH (14:52)
[2018-06-19 15:49] VITALS: BP 120/75
== END 2018-06-19 16:25 | disposition home or self-care (01) | DRG 776 ==
LOC: ED 11:16 → EDIP 11:49 → 4NOR 12:28 → DCLOUNGE 06-19 16:14
PROVIDERS: ADMIT Internal Medicine; ATTEND Internal Medicine
PROC: 0F7D8DZ Dilation of Pancreatic Duct with Intraluminal Device, Via Natural or Artificial Opening Endoscopic (ICD-10-PCS; 2018-06-17)
PROC: BF111ZZ Fluoroscopy of Biliary and Pancreatic Ducts using Low Osmolar Contrast (ICD-10-PCS; 2018-06-17)
PROC: 0F798DZ Dilation of Common Bile Duct with Intraluminal Device, Via Natural or Artificial Opening Endoscopic (ICD-10-PCS; principal; 2018-06-17 09:00)
DX: O85 Puerperal sepsis (principal); E43 Unspecified severe protein-calorie malnutrition; K85.10 Biliary acute pancreatitis without necrosis or infection; K86.1 Other chronic pancreatitis; K86.3 Pseudocyst of pancreas; D64.9 Anemia, unspecified; O90.81 Anemia of the puerperium; O99.63 Diseases of the digestive system complicating the puerperium; O25.3 Malnutrition in the puerperium; Z68.34 Body mass index [BMI] 34.0-34.9, adult
CPT/HCPCS: 36415; 74330; 99285; S0028; 71045; 74177; 78226; 80053; 81003; 83605; 83690; 83735; 84100; 85025; 87040; 96374; 96375; J0696; J1100; J1170; J1885; J2250; J2405; J2704; J3010; J3480; Q9967; A9537; C1769; C1894; C2625; J0330; J7030; J7120

== ENCOUNTER 2018-06-23 17:07 | Inpatient (IN) | payer OTHER ==
[~2018-06-23] VITALS: Ht 170.2 cm; Wt 90.1 kg
[~2018-06-23 17:07] MED LIST changes: +CEFD300C37 PO; +METR500T PO; +TRAM50TA2 PO
[2018-06-23] MEDS ORDERED: ONDANSETRON 2MG/ML, 2ML ONE (18:11)
[2018-06-23] MEDS ORDERED: FAMOTIDINE 20 MG/2 ML ONE (18:11)
[2018-06-23] MEDS ORDERED: MORPHINE SULFATE 4 MG/ML, 1ML ONE ×2 (18:11→20:04)
[2018-06-23] MEDS: MORPHINE SULFATE 4 MG/ML, 1ML IVPush PRN ×2 (18:17→20:11)
[2018-06-23] MEDS ORDERED: ONDANSETRON 2MG/ML, 2ML IVPush ONE (18:30)
[2018-06-23] MEDS ORDERED: SODIUM CHLORIDE 0.9% 1,000ML IVBOLUS ONE (18:30)
[2018-06-23] MEDS ORDERED: FAMOTIDINE 20 MG/2 ML IVP ONE (18:30)
[2018-06-23] MEDS ORDERED: SODIUM CHLORIDE FLUSH 10ML SYR IVF ONE (18:30)
[2018-06-23 18:34] LABS: ALANINE AMINOTRANSFERASE 10 U/L (12-78); ALBUMIN 2.6 g/dL (3.4-5.0); ANION GAP 8 mmol/L (5-15); CALCIUM 8.9 mg/dL (8.5-10.1); CHLORIDE 103 mmol/L (98-107); CREATININE 0.72 mg/dL (0.55-1.02)
[2018-06-23 18:36] LABS: ALKALINE PHOSPHATASE 147 U/L (45-117); BILIRUBIN,TOTAL 0.4 mg/dL (0.2-1.0); TOTAL PROTEIN 7.8 g/dL (6.4-8.2)
[2018-06-23 18:44] LABS: MEAN CORPUSCULAR HEMOGLOBIN 28.8 pg (27.0-34.8); MEAN CORPUSCULAR HGB CONC 33.1 g/dL (32.4-35.8); MEAN CORPUSCULAR VOLUME 87.2 fL (80-100); MEAN PLATELET VOLUME 9.2 fL (7.4-10.4); PLATELET COUNT 646 x10^3/uL (130-400); RED CELL DISTRIBUTION WIDTH 14.8 % (9.6-15.2)
[2018-06-23 18:45] LABS: MD YES
[2018-06-23 18:47] LABS: <PLATELET ESTIMATE> INCREASED; <RBC MORPHOLOGY> NORMAL; LYMPH#(MANUAL) 1.36 x10^3/uL (1-3.4); LYMPHS% (MANUAL) 6 % (22-44); MONOS#(MANUAL) 0.45 x10^3/uL (0.3-2.7); MONOS% (MANUAL) 2 % (2-9); REACTIVE LYMPHS # (MANUAL) 0.23 x10^3/uL (0-0); REACTIVE LYMPHS % (MANUAL) 1 % (0-0); SEG#(MANUAL) 20.66 x10^3/uL (1.8-6.8); SEGS% (MANUAL) 91 % (42-75)
[2018-06-23 18:48] LABS: LARGE PLATELETS 1+
[2018-06-23 20:00] VITALS: BP 117/80
[2018-06-23] MEDS ORDERED: CEFTRIAXONE 1,000 MG in SODIUM CHLORIDE 0.9% 50 ML IV ONE (20:00)
[2018-06-23] MEDS ORDERED: METRONIDAZOLE PMX 500MG/100ML 100 ML IV ONE (20:00)
[2018-06-23] MEDS ORDERED: CEFTRIAXONE PMX 1GM/50ML 50 ML ONE (20:03)
[2018-06-23] MEDS ORDERED: METRONIDAZOLE PMX 500MG/100ML 100 ML ONE (20:03)
[2018-06-23] MEDS ORDERED: SODIUM CHLORIDE 0.9% 1,000 ML IV ONE (20:30)
[2018-06-23] MEDS ORDERED: CEFEPIME 2 GM in DEXTROSE 5% 100 ML IV SCH (21:00)
[2018-06-23] MEDS ORDERED: CEFEPIME 2 GM in SODIUM CHLORIDE 0.9% 100 ML IV SCH ×2 (21:37→22:00)
[2018-06-23] MEDS ORDERED: CEFTRIAXONE 1,000 MG in SODIUM CHLORIDE 0.9% 50 ML IV SCH (22:00)
[2018-06-23] MEDS: KETOROLAC 30 MG/1 ML IV PRN (22:18)
[2018-06-23] MEDS: ENOXAPARIN 40 MG/0.4 ML SQ SCH (22:19)
[2018-06-23] MEDS: LACTATED RINGERS 1,000 ML IV SCH (22:19)
[2018-06-24] MEDS: METRONIDAZOLE PMX 500MG/100ML 100 ML IV SCH ×3 (00:12→16:16)
[2018-06-24] MEDS: morphine SULFATE 10 MG/ML, 1ML IVPush PRN ×2 (00:12→08:18)
[2018-06-24 01:29] VITALS: BP 102/69
[2018-06-24 04:54] LABS: MEAN CORPUSCULAR HEMOGLOBIN 28.8 pg (27.0-34.8); MEAN CORPUSCULAR VOLUME 87.3 fL (80-100); MEAN PLATELET VOLUME 8.9 fL (7.4-10.4); PLATELET COUNT 444 x10^3/uL (130-400); RED BLOOD COUNT 3.12 x10^6/uL (3.82-5.3); RED CELL DISTRIBUTION WIDTH 14.9 % (9.6-15.2)
[2018-06-24 05:01] LABS: ALANINE AMINOTRANSFERASE 7 U/L (12-78); ANION GAP 8 mmol/L (5-15); CALCIUM 7.9 mg/dL (8.5-10.1); CHLORIDE 108 mmol/L (98-107); TRIGLYCERIDES 103 mg/dL (50-200)
[2018-06-24 05:04] LABS: ALKALINE PHOSPHATASE 130 U/L (45-117); BILIRUBIN,TOTAL 0.3 mg/dL (0.2-1.0); CREATININE 0.57 mg/dL (0.55-1.02); TOTAL PROTEIN 6.2 g/dL (6.4-8.2)
[2018-06-24] MEDS: LACTATED RINGERS 1,000 ML IV SCH ×2 (05:37→17:48)
[2018-06-24] MEDS: CEFEPIME 2 GM in DEXTROSE 5% 100 ML IV SCH ×3 (05:38→21:49)
[2018-06-24] MEDS: ONDANSETRON 2MG/ML, 2ML IVPush PRN ×3 (05:38→20:30)
[2018-06-24 05:47] LABS: MD YES
[2018-06-24 05:51] LABS: BAND#(MANUAL) 0.16 x10^3/uL; BANDS%(MANUAL) 1 % (0-7); BASOS#(MANUAL) 0.16 x10^3/uL (0-0.1); BASOS% (MANUAL) 1 % (0-1); EOS#(MANUAL) 0.16 x10^3/uL (0.0-0.4); EOS% (MANUAL) 1 % (1-7); LYMPH#(MANUAL) 1.43 x10^3/uL (1-3.4); LYMPHS% (MANUAL) 9 % (22-44); MONOS#(MANUAL) 0.64 x10^3/uL (0.3-2.7); MONOS% (MANUAL) 4 % (2-9); SEG#(MANUAL) 13.36 x10^3/uL (1.8-6.8); SEGS% (MANUAL) 84 % (42-75)
[2018-06-24 05:53] LABS: <PLATELET ESTIMATE> INCREASED; ANISOCYTOSIS 1+; LARGE PLATELETS 1+; POLYCHROMASIA 1+
[2018-06-24 08:08] VITALS: BP 113/76
[2018-06-24] MEDS ORDERED: morphine SULFATE 10 MG/ML, 1ML IV ONE (09:30)
[2018-06-24] MEDS: LORazepam 2 MG/ML, 1ML IVPush PRN ×2 (10:57→21:48)
[2018-06-24 13:38] VITALS: BP 113/79
[2018-06-24] MEDS: ACETAMINOPHEN 650 MG SUPP PR PRN ×2 (13:42→20:34)
[2018-06-24 19:15] VITALS: BP 124/73
[2018-06-24] MEDS: ENOXAPARIN 40 MG/0.4 ML SQ SCH (20:22)
[2018-06-25] MEDS: METRONIDAZOLE PMX 500MG/100ML 100 ML IV SCH ×3 (00:06→16:13)
[2018-06-25 01:33] VITALS: BP 111/77
[2018-06-25] MEDS: LACTATED RINGERS 1,000 ML IV SCH ×2 (05:10→18:10)
[2018-06-25] MEDS: ONDANSETRON 2MG/ML, 2ML IVPush PRN ×3 (05:15→23:46)
[2018-06-25] MEDS: CEFEPIME 2 GM in DEXTROSE 5% 100 ML IV SCH ×3 (05:25→22:04)
[2018-06-25] MEDS: LORazepam 2 MG/ML, 1ML IVPush PRN ×4 (05:44→20:11)
[2018-06-25 06:12] LABS: ALBUMIN 1.9 g/dL (3.4-5.0); ANION GAP 7 mmol/L (5-15); BASOPHILS # (AUTO) 0.07 x10^3/uL (0-0.1); BASOPHILS % (AUTO) 1 % (0-1); CHLORIDE 108 mmol/L (98-107); EOSINOPHILS # (AUTO) 0.01 x10^3/uL (0-0.4); EOSINOPHILS % (AUTO) 0 % (1-7); LYMPHOCYTES # (AUTO) 1.22 x10^3/uL (1-3.4); LYMPHOCYTES % (AUTO) 8 % (22-44); MD NO; MEAN CORPUSCULAR HEMOGLOBIN 28.1 pg (27.0-34.8); MEAN CORPUSCULAR HGB CONC 32.4 g/dL (32.4-35.8); MEAN CORPUSCULAR VOLUME 86.8 fL (80-100); MEAN PLATELET VOLUME 9.2 fL (7.4-10.4); MONOCYTES # (AUTO) 0.73 x10^3/uL (0.2-0.8); MONOCYTES % (AUTO) 5 % (2-9); NEUTROPHILS # (AUTO) 12.75 x10^3/uL (1.8-6.8); NEUTROPHILS % (AUTO) 86 % (42-75); PLATELET COUNT 402 x10^3/uL (130-400); RED BLOOD COUNT 2.98 x10^6/uL (3.82-5.3); RED CELL DISTRIBUTION WIDTH 14.8 % (9.6-15.2)
[2018-06-25 06:17] LABS: ALANINE AMINOTRANSFERASE 7 U/L (12-78); ALKALINE PHOSPHATASE 111 U/L (45-117); BILIRUBIN,TOTAL 0.6 mg/dL (0.2-1.0); CREATININE 0.56 mg/dL (0.55-1.02); TOTAL PROTEIN 6.2 g/dL (6.4-8.2)
[2018-06-25 06:49] VITALS: BP 123/83
[2018-06-25 12:39] VITALS: BP 109/72
[2018-06-25] MEDS: ACETAMINOPHEN 500 MG TABLET PO PRN (13:45)
[2018-06-25] MEDS: KETOROLAC 30 MG/1 ML IV PRN (13:45)
[2018-06-25 19:03] VITALS: BP 108/73
[2018-06-25] MEDS: ENOXAPARIN 40 MG/0.4 ML SQ SCH (20:59)
[2018-06-25 23:17] LABS: CLOSTRIDIUM DIFFICILE ANTIGEN NEGATIVE; CLOSTRIDIUM DIFFICILE TOXIN NEGATIVE (Negative)
[2018-06-26] MEDS: METRONIDAZOLE PMX 500MG/100ML 100 ML IV SCH ×3 (00:09→15:58)
[2018-06-26] MEDS: LORazepam 2 MG/ML, 1ML IVPush PRN ×3 (00:20→13:13)
[2018-06-26 01:22] VITALS: BP 115/73
[2018-06-26] MEDS: LACTATED RINGERS 1,000 ML IV SCH ×3 (02:39→08:15)
[2018-06-26] MEDS: KETOROLAC 30 MG/1 ML IV PRN (02:44)
[2018-06-26] MEDS ORDERED: PROMETHAZINE 25 MG/ML, 1ML IM ONE (03:00)
[2018-06-26] MEDS: CEFEPIME 2 GM in DEXTROSE 5% 100 ML IV SCH ×3 (06:36→21:48)
[2018-06-26 07:54] VITALS: BP 100/66
[2018-06-26] MEDS ORDERED: MORPHINE SULFATE 4 MG/ML, 1ML IVPush PRN ×2 (08:30)
[2018-06-26] MEDS: ONDANSETRON 2MG/ML, 2ML IVPush PRN (10:34)
[2018-06-26] MEDS ORDERED: PROMETHAZINE 25 MG/ML, 1ML IM PRN (11:30)
[2018-06-26] MEDS: FLORASTOR 250 MG CAPSULE PO SCH ×2 (13:13→21:48)
[2018-06-26 13:59] VITALS: BP 104/67
[2018-06-26] MEDS: ACETAMINOPHEN 500 MG TABLET PO PRN (16:02)
[2018-06-26 16:46] LABS: CRYPTOSPORIDIUM ANTIGEN Negative (Negative)
[2018-06-26 19:10] VITALS: BP 112/77
[2018-06-26] MEDS: ENOXAPARIN 40 MG/0.4 ML SQ SCH (21:00)
[2018-06-27] MEDS: METRONIDAZOLE PMX 500MG/100ML 100 ML IV SCH ×3 (00:07→19:37)
[2018-06-27] MEDS: ONDANSETRON 2MG/ML, 2ML IVPush PRN ×2 (02:06→08:29)
[2018-06-27 02:28] VITALS: BP 102/66
[2018-06-27 05:42] LABS: BASOPHILS # (AUTO) 0.09 x10^3/uL (0-0.1); BASOPHILS % (AUTO) 1 % (0-1); EOSINOPHILS # (AUTO) 0.13 x10^3/uL (0-0.4); EOSINOPHILS % (AUTO) 1 % (1-7); LYMPHOCYTES # (AUTO) 1.29 x10^3/uL (1-3.4); LYMPHOCYTES % (AUTO) 11 % (22-44); MD NO; MEAN CORPUSCULAR HEMOGLOBIN 28.8 pg (27.0-34.8); MEAN CORPUSCULAR HGB CONC 33.2 g/dL (32.4-35.8); MEAN CORPUSCULAR VOLUME 86.8 fL (80-100); MEAN PLATELET VOLUME 9.8 fL (7.4-10.4); MONOCYTES # (AUTO) 0.81 x10^3/uL (0.2-0.8); MONOCYTES % (AUTO) 7 % (2-9); NEUTROPHILS # (AUTO) 9.68 x10^3/uL (1.8-6.8); NEUTROPHILS % (AUTO) 81 % (42-75); PLATELET COUNT 377 x10^3/uL (130-400); RED BLOOD COUNT 3.05 x10^6/uL (3.82-5.3); RED CELL DISTRIBUTION WIDTH 14.9 % (9.6-15.2)
[2018-06-27 05:57] LABS: ALANINE AMINOTRANSFERASE 7 U/L (12-78); ALBUMIN 1.9 g/dL (3.4-5.0); ANION GAP 9 mmol/L (5-15); CALCIUM 8.3 mg/dL (8.5-10.1); CHLORIDE 110 mmol/L (98-107); CREATININE 0.46 mg/dL (0.55-1.02)
[2018-06-27 06:00] LABS: ALKALINE PHOSPHATASE 96 U/L (45-117); BILIRUBIN,TOTAL 0.3 mg/dL (0.2-1.0); PREALBUMIN 7.2 mg/dL (20.0-40.0); TOTAL PROTEIN 6.1 g/dL (6.4-8.2)
[2018-06-27] MEDS: CEFEPIME 2 GM in DEXTROSE 5% 100 ML IV SCH ×2 (06:11→18:35)
[2018-06-27 08:05] VITALS: BP 101/66
[2018-06-27] MEDS: FLORASTOR 250 MG CAPSULE PO SCH ×2 (08:29→19:38)
[2018-06-27] MEDS: DIPHENOXYLATE/ATROPINE TABLET PO PRN (12:57)
[2018-06-27] MEDS: LACTATED RINGERS 1,000 ML IV SCH ×2 (13:00→19:46)
[2018-06-27 14:00] VITALS: BP 107/71
[2018-06-27] MEDS ORDERED: LIDOCAINE-MPF 2%, 2ML ONE (18:01)
[2018-06-27] MEDS: ENOXAPARIN 40 MG/0.4 ML SQ SCH (19:46)
[2018-06-27 19:49] VITALS: BP 92/54
[2018-06-27] MEDS ORDERED: POTASSIUM CHLORIDE 20 MEQ TAB.ER.PRT PO ONE (21:30)
[2018-06-28 00:51] VITALS: BP 98/65
[2018-06-28] MEDS: CEFEPIME 2 GM in DEXTROSE 5% 100 ML IV SCH ×3 (02:40→19:31)
[2018-06-28] MEDS: METRONIDAZOLE PMX 500MG/100ML 100 ML IV SCH ×3 (03:26→21:22)
[2018-06-28] MEDS: DIPHENOXYLATE/ATROPINE TABLET PO PRN (04:00)
[2018-06-28 06:00] LABS: ALBUMIN 2.1 g/dL (3.4-5.0); ANION GAP 6 mmol/L (5-15); CHLORIDE 110 mmol/L (98-107)
[2018-06-28 06:02] LABS: BASOPHILS # (AUTO) 0.13 x10^3/uL (0-0.1); BASOPHILS % (AUTO) 1 % (0-1); EOSINOPHILS # (AUTO) 0.27 x10^3/uL (0-0.4); EOSINOPHILS % (AUTO) 3 % (1-7); LYMPHOCYTES # (AUTO) 1.34 x10^3/uL (1-3.4); LYMPHOCYTES % (AUTO) 13 % (22-44); MD NO; MEAN CORPUSCULAR HEMOGLOBIN 27.7 pg (27.0-34.8); MEAN CORPUSCULAR HGB CONC 32.1 g/dL (32.4-35.8); MEAN CORPUSCULAR VOLUME 86.3 fL (80-100); MEAN PLATELET VOLUME 10.1 fL (7.4-10.4); MONOCYTES # (AUTO) 0.63 x10^3/uL (0.2-0.8); MONOCYTES % (AUTO) 6 % (2-9); NEUTROPHILS % (AUTO) 77 % (42-75); PLATELET COUNT 418 x10^3/uL (130-400); RED BLOOD COUNT 3.06 x10^6/uL (3.82-5.3)
[2018-06-28 06:03] LABS: ALANINE AMINOTRANSFERASE 8 U/L (12-78); ALKALINE PHOSPHATASE 95 U/L (45-117); BILIRUBIN,TOTAL 0.2 mg/dL (0.2-1.0); CREATININE 0.56 mg/dL (0.55-1.02); TOTAL PROTEIN 6.3 g/dL (6.4-8.2)
[2018-06-28 07:17] VITALS: BP 101/64
[2018-06-28] MEDS: FLORASTOR 250 MG CAPSULE PO SCH ×2 (09:55→21:21)
[2018-06-28] MEDS: LACTATED RINGERS 1,000 ML IV SCH (09:55)
[2018-06-28 12:12] VITALS: BP 108/73
[2018-06-28] MEDS: MULTIVITAMINS WITH IRON TABLET PO SCH (16:46)
[2018-06-28 20:08] VITALS: BP 110/73
[2018-06-28] MEDS: ENOXAPARIN 40 MG/0.4 ML SQ SCH (21:00)
[2018-06-29 01:18] VITALS: BP 105/70
[2018-06-29] MEDS: CEFEPIME 2 GM in DEXTROSE 5% 100 ML IV SCH ×2 (02:12→12:02)
[2018-06-29] MEDS: METRONIDAZOLE PMX 500MG/100ML 100 ML IV SCH ×2 (02:58→10:56)
[2018-06-29] MEDS: LACTATED RINGERS 1,000 ML IV SCH ×2 (02:58→22:06)
[2018-06-29 04:37] LABS: ALANINE AMINOTRANSFERASE 7 U/L (12-78); ANION GAP 5 mmol/L (5-15); CALCIUM 8.2 mg/dL (8.5-10.1); CHLORIDE 109 mmol/L (98-107); CREATININE 0.41 mg/dL (0.55-1.02)
[2018-06-29 04:40] LABS: ALKALINE PHOSPHATASE 96 U/L (45-117); BILIRUBIN,TOTAL 0.3 mg/dL (0.2-1.0); TOTAL PROTEIN 6.1 g/dL (6.4-8.2)
[2018-06-29 07:48] VITALS: BP 124/84
[2018-06-29] MEDS: POTASSIUM CHLORIDE 20 MEQ TAB.ER.PRT PO SCH (08:03)
[2018-06-29] MEDS: MULTIVITAMINS WITH IRON TABLET PO SCH (08:04)
[2018-06-29] MEDS: FLORASTOR 250 MG CAPSULE PO SCH ×2 (08:04→20:30)
[2018-06-29 14:30] VITALS: BP 108/71
[2018-06-29] MEDS: ERTAPENEM 1 GM in SODIUM CHLORIDE 0.9% 50 ML IV SCH (16:06)
[2018-06-29 19:47] VITALS: BP 111/76
[2018-06-29] MEDS: ENOXAPARIN 40 MG/0.4 ML SQ SCH (20:31)
[2018-06-30 01:04] VITALS: BP 98/66
[2018-06-30] MEDS: LACTATED RINGERS 1,000 ML IV SCH ×2 (08:09→20:34)
[2018-06-30 08:11] VITALS: BP 112/76
[2018-06-30] MEDS: POTASSIUM CHLORIDE 20 MEQ TAB.ER.PRT PO SCH (09:50)
[2018-06-30] MEDS: FLORASTOR 250 MG CAPSULE PO SCH ×2 (09:50→20:34)
[2018-06-30] MEDS: MULTIVITAMINS WITH IRON TABLET PO SCH (09:50)
[2018-06-30 15:13] VITALS: BP 120/77
[2018-06-30] MEDS: ERTAPENEM 1 GM in SODIUM CHLORIDE 0.9% 50 ML IV SCH (16:11)
[2018-06-30 19:15] VITALS: BP 97/55
[2018-06-30] MEDS: ENOXAPARIN 40 MG/0.4 ML SQ SCH (20:35)
[2018-07-01 01:01] VITALS: BP 110/71
[2018-07-01] MEDS: LACTATED RINGERS 1,000 ML IV SCH ×2 (04:09→13:59)
[2018-07-01 07:20] VITALS: BP 116/76
[2018-07-01] MEDS: FLORASTOR 250 MG CAPSULE PO SCH ×2 (08:38→20:58)
[2018-07-01] MEDS: MULTIVITAMINS WITH IRON TABLET PO SCH (08:38)
[2018-07-01] MEDS: POTASSIUM CHLORIDE 20 MEQ TAB.ER.PRT PO SCH (08:38)
[2018-07-01 09:55] VITALS: BP 117/81
[2018-07-01 13:06] VITALS: BP 117/78
[2018-07-01] MEDS ORDERED: SIMETHICONE 125 MG CHEW TAB ONE (15:26)
[2018-07-01] MEDS ORDERED: SIMETHICONE 125 MG CHEW TAB PO ONE (15:30)
[2018-07-01] MEDS: ERTAPENEM 1 GM in SODIUM CHLORIDE 0.9% 50 ML IV SCH (16:21)
[2018-07-01] MEDS ORDERED: SIMETHICONE 125 MG CHEW TAB PO PRN (17:30)
[2018-07-01 19:15] VITALS: BP 106/70
[2018-07-01] MEDS: ENOXAPARIN 40 MG/0.4 ML SQ SCH (21:00)
[2018-07-02 01:28] VITALS: BP 108/76
[2018-07-02] MEDS: LACTATED RINGERS 1,000 ML IV SCH (04:12)
[2018-07-02 07:18] VITALS: BP 106/71
[2018-07-02] MEDS: FLORASTOR 250 MG CAPSULE PO SCH (08:52)
[2018-07-02] MEDS: POTASSIUM CHLORIDE 20 MEQ TAB.ER.PRT PO SCH (08:52)
[2018-07-02] MEDS: MULTIVITAMINS WITH IRON TABLET PO SCH (08:52)
[2018-07-02] MEDS ORDERED: ERTA1VIA4 IM/IV (10:32)
[2018-07-02] MEDS ORDERED: MULT1TAB81 PO (10:32)
[2018-07-02] MEDS ORDERED: Simethicone PO (10:32)
[2018-07-02 12:36] VITALS: BP 121/77
[2018-07-02] MEDS: ERTAPENEM 1 GM in SODIUM CHLORIDE 0.9% 50 ML IV SCH (14:52)
== END 2018-07-02 15:55 | disposition home health service (06) | DRG 776 ==
LOC: ED 19:38 → EDIP 20:08 → 3NE 21:00
PROVIDERS: ADMIT Hospitalist; ATTEND Hospitalist
PROC: 02HV33Z Insertion of Infusion Device into Superior Vena Cava, Percutaneous Approach (ICD-10-PCS; principal; 2018-06-27)
PROC: B548ZZA Ultrasonography of Superior Vena Cava, Guidance (ICD-10-PCS; 2018-06-27)
DX: O85 Puerperal sepsis (principal); K85.90 Acute pancreatitis without necrosis or infection, unspecified; K86.3 Pseudocyst of pancreas; K86.1 Other chronic pancreatitis; E87.1 Hypo-osmolality and hyponatremia; O25.3 Malnutrition in the puerperium; F43.21 Adjustment disorder with depressed mood; O99.345 Other mental disorders complicating the puerperium; O99.63 Diseases of the digestive system complicating the puerperium; O26.63 Liver and biliary tract disorders in the puerperium; K83.8 Other specified diseases of biliary tract; O99.285 Endocrine, nutritional and metabolic diseases complicating the puerperium; O90.81 Anemia of the puerperium; R32 Unspecified urinary incontinence; F53 Mental and behavioral disorders associated with the puerperium, not elsewhere classified; Z90.49 Acquired absence of other specified parts of digestive tract; Z83.3 Family history of diabetes mellitus; Z56.0 Unemployment, unspecified; Z82.49 Family history of ischemic heart disease and other diseases of the circulatory system
CPT/HCPCS: 36415; 74018; 77001; 87046; 99285; S0028; 36569; 71045; 76700; 76937; 80053; 83690; 83735; 84100; 84134; 84478; 85025; 87040; 87324; 87328; 87329; 89055; 93005; 96361; 96374; 96375; 96376; J0696; J1335; J1650; J1885; J2270; J2405; J2550; J3490; C1751; J2060; J7030; J7120

== ENCOUNTER 2018-07-19 05:37 | Day surgery (SDC) | payer OTHER ==
[~2018-07-19] VITALS: Ht 170.2 cm; Wt 80.0 kg
[~2018-07-19 05:37] MED LIST changes: +ERTA1VIA4 IM/IV; +MULT1TAB81 PO; +Simethicone PO
[2018-07-19 06:53] VITALS: BP 117/90
[2018-07-19] MEDS ORDERED: LACTATED RINGERS 1,000 ML IV SCH (07:00)
[2018-07-19] MEDS ORDERED: ERTA1VIA IV (07:01)
[2018-07-19] MEDS ORDERED: MIDAZOLAM 1 MG/ML, 2ML ONE (07:19)
[2018-07-19] MEDS ORDERED: FENTANYL PF 250 MCG/5ML ONE (07:19)
[2018-07-19] MEDS ORDERED: PROPOFOL 10 MG/ML, 20ML ONE (07:21)
[2018-07-19] MEDS ORDERED: LIDOCAINE-MPF 2% ,5ML ONE (07:21)
[2018-07-19] MEDS ORDERED: DEXAMETHASONE 4 MG/ML, 1ML ONE ×2 (07:22→07:23)
[2018-07-19] MEDS ORDERED: ROCURONIUM 10MG/ML,5ML ONE (07:23)
[2018-07-19] MEDS ORDERED: PHENYLEPHRINE 10 MG/ML ONE (07:23)
[2018-07-19] MEDS ORDERED: ONDANSETRON 2MG/ML, 2ML ONE (07:37)
[2018-07-19] MEDS ORDERED: GLYCOPYRROLATE 0.4 MG/2 ML, 2ML ONE (08:01)
[2018-07-19] MEDS ORDERED: NEOSTIGMINE 1 MG/ML, 10ML ONE (08:01)
[2018-07-19] MEDS ORDERED: OMNIPAQUE 350 MG/ML, 50 ML BOTTLE ONE (08:10)
[2018-07-19] MEDS ORDERED: PROMETHAZINE 25 MG/ML, 1ML IV PRN (08:30)
[2018-07-19] MEDS ORDERED: MEPERIDINE/PF 25MG/0.5ML IVPush PRN (08:30)
[2018-07-19] MEDS ORDERED: OXYcodone 5 MG/5 ML ORAL.SOL UDC PO PRN (08:30)
[2018-07-19] MEDS ORDERED: HYDROmorphone 1 MG/ML, 1ML IV PRN (08:30)
[2018-07-19] MEDS ORDERED: FENTANYL PF 100 MCG/2ML IV PRN (08:30)
[2018-07-19] MEDS ORDERED: ACETAMINOPHEN 325 MG TABLET PO PRN (08:30)
[2018-07-19] MEDS ORDERED: HALOPERIDOL 5 MG/ML IV PRN (08:30)
== END 2018-07-19 09:30 | disposition home or self-care (01) ==
LOC: OUT 05:37
PROVIDERS: ATTEND Internal Medicine Gastroenterology
DX: K86.3 Pseudocyst of pancreas (principal); K83.8 Other specified diseases of biliary tract; K22.8 Other specified diseases of esophagus; Z98.890 Other specified postprocedural states
CPT/HCPCS: 36415; 43239; 43275; 74330; 84703; 88305; J1100; J2250; J2370; J2405; J2704; J2710; J3010; J3490; J7120; Q9967

== ENCOUNTER 2018-07-23 18:49 | Emergency (ER) | payer OTHER ==
[~2018-07-23] VITALS: Ht 170.2 cm; Wt 80.8 kg
[~2018-07-23 18:49] MED LIST changes: +ERTA1VIA IV
[2018-07-23 19:56] LABS: BASOPHILS # (AUTO) 0.04 x10^3/uL (0-0.1); BASOPHILS % (AUTO) 0 % (0-1); EOSINOPHILS # (AUTO) 0.22 x10^3/uL (0-0.4); EOSINOPHILS % (AUTO) 2 % (1-7); LYMPHOCYTES # (AUTO) 2.01 x10^3/uL (1-3.4); LYMPHOCYTES % (AUTO) 18 % (22-44); MD NO; MEAN CORPUSCULAR HEMOGLOBIN 28.4 pg (27.0-34.8); MEAN CORPUSCULAR HGB CONC 32.9 g/dL (32.4-35.8); MEAN CORPUSCULAR VOLUME 86.2 fL (80-100); MEAN PLATELET VOLUME 9.4 fL (7.4-10.4); MONOCYTES # (AUTO) 0.61 x10^3/uL (0.2-0.8); MONOCYTES % (AUTO) 6 % (2-9); NEUTROPHILS # (AUTO) 8.18 x10^3/uL (1.8-6.8); NEUTROPHILS % (AUTO) 74 % (42-75); PLATELET COUNT 427 x10^3/uL (130-400); RED BLOOD COUNT 4.33 x10^6/uL (3.82-5.3); RED CELL DISTRIBUTION WIDTH 16.4 % (9.6-15.2)
[2018-07-23 20:09] LABS: ALANINE AMINOTRANSFERASE 22 U/L (12-78); ANION GAP 6 mmol/L (5-15); CHLORIDE 109 mmol/L (98-107); CREATININE 0.64 mg/dL (0.55-1.02)
[2018-07-23 20:13] LABS: ALKALINE PHOSPHATASE 142 U/L (45-117); BILIRUBIN,TOTAL 0.5 mg/dL (0.2-1.0); TOTAL PROTEIN 7.7 g/dL (6.4-8.2)
[2018-07-23] MEDS ORDERED: OMNIPAQUE 350 MG/ML, 100ML BOTTLE ONE (21:13)
[2018-07-23] MEDS ORDERED: MORPHINE SULFATE 4 MG/ML, 1ML ONE (21:24)
[2018-07-23] MEDS ORDERED: ONDANSETRON ODT 4 MG ONE (21:24)
[2018-07-23] MEDS ORDERED: ONDANSETRON 2MG/ML, 2ML IVPush ONE (21:30)
[2018-07-23] MEDS ORDERED: ERTAPENEM 1 GM in SODIUM CHLORIDE 0.9% 50 ML IV ONE (21:30)
[2018-07-23] MEDS ORDERED: MORPHINE SULFATE 4 MG/ML, 1ML IVPush PRN (21:30)
[2018-07-23] MEDS ORDERED: SODIUM CHLORIDE 0.9% 1,000ML IVBOLUS ONE (21:30)
[2018-07-23 22:08] VITALS: BP 120/77
== END 2018-07-23 22:24 | disposition home or self-care (01) ==
LOC: ED 21:50
DX: K86.1 Other chronic pancreatitis (principal); Z87.891 Personal history of nicotine dependence; Z90.49 Acquired absence of other specified parts of digestive tract
CPT/HCPCS: 36415; 74177; 80053; 83690; 84703; 85025; 96361; 96374; 99285; J1335; J7030; Q9967

== ENCOUNTER 2018-07-27 23:59 | Inpatient (IN) | payer OTHER ==
[~2018-07-27] VITALS: Ht 170.2 cm; Wt 71.6 kg
[2018-07-28 00:45] LABS: ALANINE AMINOTRANSFERASE 19 U/L (12-78); ALBUMIN 3.1 g/dL (3.4-5.0); ANION GAP 8 mmol/L (5-15); CALCIUM 9.1 mg/dL (8.5-10.1); CHLORIDE 104 mmol/L (98-107); CREATININE 0.77 mg/dL (0.55-1.02)
[2018-07-28 00:47] LABS: BASOPHILS # (AUTO) 0.05 x10^3/uL (0-0.1); BASOPHILS % (AUTO) 0 % (0-1); EOSINOPHILS # (AUTO) 0.12 x10^3/uL (0-0.4); EOSINOPHILS % (AUTO) 1 % (1-7); LYMPHOCYTES # (AUTO) 1.52 x10^3/uL (1-3.4); LYMPHOCYTES % (AUTO) 10 % (22-44); MD NO; MEAN CORPUSCULAR HEMOGLOBIN 28.2 pg (27.0-34.8); MEAN CORPUSCULAR HGB CONC 33.2 g/dL (32.4-35.8); MEAN CORPUSCULAR VOLUME 84.8 fL (80-100); MONOCYTES # (AUTO) 0.61 x10^3/uL (0.2-0.8); MONOCYTES % (AUTO) 4 % (2-9); NEUTROPHILS # (AUTO) 12.69 x10^3/uL (1.8-6.8); NEUTROPHILS % (AUTO) 85 % (42-75); PLATELET COUNT 452 x10^3/uL (130-400); RED BLOOD COUNT 4.51 x10^6/uL (3.82-5.3); RED CELL DISTRIBUTION WIDTH 16.6 % (9.6-15.2)
[2018-07-28 00:49] LABS: ALKALINE PHOSPHATASE 144 U/L (45-117); BILIRUBIN,TOTAL 0.4 mg/dL (0.2-1.0); TOTAL PROTEIN 7.8 g/dL (6.4-8.2)
[2018-07-28] MEDS ORDERED: METOCLOPRAMIDE 5 MG/ML, 2ML ONE (01:18)
[2018-07-28] MEDS ORDERED: METHYLNALTREXONE 12 MG/0.6 ML SQ ONE ×2 (01:18→01:30)
[2018-07-28] MEDS ORDERED: SODIUM CHLORIDE 0.9% 1,000ML IVBOLUS ONE (01:30)
[2018-07-28] MEDS ORDERED: SODIUM CHLORIDE FLUSH 10ML SYR IVF ONE (01:30)
[2018-07-28] MEDS ORDERED: METOCLOPRAMIDE 5 MG/ML, 2ML IVPush ONE (01:30)
[2018-07-28] MEDS ORDERED: ONDA8TAB12 PO (01:32)
[2018-07-28] MEDS ORDERED: OXYC-302 PO (01:32)
[2018-07-28] MEDS ORDERED: OMNIPAQUE 350 MG/ML, 100ML BOTTLE ONE (03:00)
[2018-07-28] MEDS ORDERED: PIPERACILLIN/TAZO/PMX 3.375GM 50 ML ONE ×2 (04:12→04:15)
[2018-07-28] MEDS ORDERED: LORazepam 2 MG/ML, 1ML ONE (04:28)
[2018-07-28] MEDS ORDERED: PIPERACILLIN/TAZO/PMX 3.375GM 50 ML IV ONE (04:30)
[2018-07-28] MEDS ORDERED: ONDANSETRON 2MG/ML, 2ML IVPush PRN (04:30)
[2018-07-28] MEDS ORDERED: ERTAPENEM 1 GM in SODIUM CHLORIDE 0.9% 50 ML IV SCH (04:30)
[2018-07-28] MEDS ORDERED: HYDROmorphone 2 MG/ML, 1ML IVPush PRN (04:30)
[2018-07-28] MEDS ORDERED: KETOROLAC 30 MG/1 ML IV PRN (04:30)
[2018-07-28] MEDS ORDERED: PROMETHAZINE 25 MG/ML, 1ML IM PRN (04:30)
[2018-07-28] MEDS ORDERED: LORazepam 2 MG/ML, 1ML IVPush ONE (04:30)
[2018-07-28] MEDS ORDERED: hydrALAzine 20 MG/ML, 1ML IVPush PRN (04:30)
[2018-07-28] MEDS: NS + 20MEQ KCL 1,000 ML IV SCH ×3 (08:26→22:04)
[2018-07-28] MEDS: HEPARIN 5,000 UNITS/ML, 1ML SQ SCH ×2 (08:26→16:28)
[2018-07-28 09:00] VITALS: BP 110/68
[2018-07-28 12:33] LABS: MICROSCOPIC INDICATED
[2018-07-28 12:34] LABS: CULTURE INDICATED? NO
[2018-07-28 14:14] VITALS: BP 121/72
[2018-07-28 20:15] VITALS: BP 102/67
[2018-07-28] MEDS: ERTAPENEM 1 GM in SODIUM CHLORIDE 0.9% 50 ML IV SCH (20:53)
[2018-07-29] MEDS: HEPARIN 5,000 UNITS/ML, 1ML SQ SCH ×3 (00:43→17:04)
[2018-07-29 03:51] VITALS: BP 111/72
[2018-07-29] MEDS: NS + 20MEQ KCL 1,000 ML IV SCH ×2 (04:37→12:28)
[2018-07-29 06:34] LABS: BASOPHILS # (AUTO) 0.14 x10^3/uL (0-0.1); BASOPHILS % (AUTO) 2 % (0-1); EOSINOPHILS % (AUTO) 3 % (1-7); LYMPHOCYTES # (AUTO) 1.71 x10^3/uL (1-3.4); LYMPHOCYTES % (AUTO) 22 % (22-44); MD NO; MEAN CORPUSCULAR HEMOGLOBIN 27.7 pg (27.0-34.8); MEAN CORPUSCULAR HGB CONC 32.9 g/dL (32.4-35.8); MEAN PLATELET VOLUME 9.2 fL (7.4-10.4); MONOCYTES # (AUTO) 0.49 x10^3/uL (0.2-0.8); MONOCYTES % (AUTO) 6 % (2-9); NEUTROPHILS # (AUTO) 5.12 x10^3/uL (1.8-6.8); NEUTROPHILS % (AUTO) 67 % (42-75); PLATELET COUNT 332 x10^3/uL (130-400); RED BLOOD COUNT 3.77 x10^6/uL (3.82-5.3); RED CELL DISTRIBUTION WIDTH 16.5 % (9.6-15.2)
[2018-07-29 06:45] LABS: ALANINE AMINOTRANSFERASE 13 U/L (12-78); ALBUMIN 2.3 g/dL (3.4-5.0); ANION GAP 9 mmol/L (5-15); CALCIUM 8.2 mg/dL (8.5-10.1); CHLORIDE 114 mmol/L (98-107); CREATININE 0.43 mg/dL (0.55-1.02)
[2018-07-29 06:48] LABS: ALKALINE PHOSPHATASE 111 U/L (45-117); BILIRUBIN,TOTAL 0.3 mg/dL (0.2-1.0); TOTAL PROTEIN 5.8 g/dL (6.4-8.2)
[2018-07-29 07:35] VITALS: BP 119/81
[2018-07-29] MEDS ORDERED: POTASSIUM PHOSPHATE 44 MEQ in SODIUM CHLORIDE 0.9% 500 ML IV ONE (12:00)
[2018-07-29 14:00] VITALS: BP 112/72
[2018-07-29 20:00] VITALS: BP 104/62
[2018-07-29] MEDS: ERTAPENEM 1 GM in SODIUM CHLORIDE 0.9% 50 ML IV SCH (21:27)
[2018-07-30] MEDS: HEPARIN 5,000 UNITS/ML, 1ML SQ SCH ×5 (01:00→23:59)
[2018-07-30 04:26] VITALS: BP 103/66
[2018-07-30 05:20] LABS: ALBUMIN 2.3 g/dL (3.4-5.0); ANION GAP 6 mmol/L (5-15); CALCIUM 8.1 mg/dL (8.5-10.1); CHLORIDE 113 mmol/L (98-107)
[2018-07-30 05:21] LABS: CREATININE 0.42 mg/dL (0.55-1.02)
[2018-07-30 06:35] VITALS: BP 104/68
[2018-07-30] MEDS: NS + 20MEQ KCL 1,000 ML IV SCH ×3 (06:43→22:41)
[2018-07-30] MEDS: KETOROLAC 30 MG/1 ML IVPush PRN (09:25)
[2018-07-30 13:31] VITALS: BP 111/72
[2018-07-30 19:45] VITALS: BP 109/70
[2018-07-30] MEDS ORDERED: FLUTICASONE NASAL SPRAY 16GM NAS PRN (21:00)
[2018-07-30] MEDS ORDERED: CETIRIZINE 10 MG TABLET PO PRN (21:00)
[2018-07-30] MEDS: ERTAPENEM 1 GM in SODIUM CHLORIDE 0.9% 50 ML IV SCH (21:03)
[2018-07-30] MEDS ORDERED: DICYCLOMINE 10 MG/ML, 2ML IM ONE (21:30)
[2018-07-31 02:33] VITALS: BP 108/69
[2018-07-31] MEDS: NS + 20MEQ KCL 1,000 ML IV SCH ×2 (05:27→12:22)
[2018-07-31 05:35] LABS: BASOPHILS # (AUTO) 0.06 x10^3/uL (0-0.1); BASOPHILS % (AUTO) 1 % (0-1); EOSINOPHILS # (AUTO) 0.13 x10^3/uL (0-0.4); EOSINOPHILS % (AUTO) 1 % (1-7); LYMPHOCYTES # (AUTO) 1.37 x10^3/uL (1-3.4); LYMPHOCYTES % (AUTO) 13 % (22-44); MD NO; MEAN CORPUSCULAR HEMOGLOBIN 27.5 pg (27.0-34.8); MEAN CORPUSCULAR HGB CONC 32.5 g/dL (32.4-35.8); MEAN CORPUSCULAR VOLUME 84.4 fL (80-100); MONOCYTES # (AUTO) 0.49 x10^3/uL (0.2-0.8); MONOCYTES % (AUTO) 5 % (2-9); NEUTROPHILS # (AUTO) 8.79 x10^3/uL (1.8-6.8); NEUTROPHILS % (AUTO) 81 % (42-75); PLATELET COUNT 362 x10^3/uL (130-400); RED BLOOD COUNT 3.83 x10^6/uL (3.82-5.3); RED CELL DISTRIBUTION WIDTH 16.4 % (9.6-15.2)
[2018-07-31 05:43] LABS: CHLORIDE 112 mmol/L (98-107)
[2018-07-31 05:53] LABS: ALANINE AMINOTRANSFERASE 28 U/L (12-78); ALBUMIN 2.5 g/dL (3.4-5.0); ALKALINE PHOSPHATASE 298 U/L (45-117); ANION GAP 8 mmol/L (5-15); BILIRUBIN,TOTAL 0.3 mg/dL (0.2-1.0); CALCIUM 8.4 mg/dL (8.5-10.1); TOTAL PROTEIN 6.2 g/dL (6.4-8.2)
[2018-07-31 08:15] VITALS: BP 101/69
[2018-07-31] MEDS: HEPARIN 5,000 UNITS/ML, 1ML SQ SCH (08:26)
[2018-07-31] MEDS: KETOROLAC 30 MG/1 ML IVPush PRN (11:47)
[2018-07-31 12:46] VITALS: BP 111/68
== END 2018-07-31 14:35 | disposition home health service (06) | DRG 438 ==
LOC: ED 07-28 03:52 → EDIP 07-28 04:19 → SUATTDRO 07-28 04:28 → 4NOR 07-28 05:21
PROVIDERS: ADMIT Hospitalist; ATTEND Hospitalist
PROC: 0D9670Z Drainage of Stomach with Drainage Device, Via Natural or Artificial Opening (ICD-10-PCS; principal; 2018-07-28)
DX: K85.90 Acute pancreatitis without necrosis or infection, unspecified (principal); E43 Unspecified severe protein-calorie malnutrition; B37.81 Candidal esophagitis; E87.1 Hypo-osmolality and hyponatremia; K56.7 Ileus, unspecified; K86.3 Pseudocyst of pancreas; K56.51 Intestinal adhesions [bands], with partial obstruction; K86.1 Other chronic pancreatitis; D63.8 Anemia in other chronic diseases classified elsewhere; Z96.89 Presence of other specified functional implants; G89.29 Other chronic pain; N83.201 Unspecified ovarian cyst, right side; Z83.3 Family history of diabetes mellitus; Z68.24 Body mass index [BMI] 24.0-24.9, adult; Z86.32 Personal history of gestational diabetes; Z90.49 Acquired absence of other specified parts of digestive tract; Z98.891 History of uterine scar from previous surgery
CPT/HCPCS: 36415; 74021; 74177; 80048; 80053; 81001; 82040; 83605; 83690; 83735; 84100; 84145; 84702; 85025; 87040; G0378; J1335; J1644; J1885; J2405; J2543; J3480; Q9967; J0500; J2060; J2765; J7030; J7040

== ENCOUNTER → 2018-08-31 | Outpatient (CLI) | payer OTHER ==
[~2018-08-31] MED LIST changes: +OMNIPAQUE 350 MG/ML, 100ML BOTTLE ONE; +ONDA8TAB12 PO
== END | disposition home or self-care (01) ==
LOC: RAD 15:33
PROVIDERS: ATTEND Internal Medicine Gastroenterology
DX: K85.90 Acute pancreatitis without necrosis or infection, unspecified (principal)
CPT/HCPCS: 74160; Q9967

== ENCOUNTER 2020-07-30 09:49 | Inpatient (IN) | payer OTHER ==
[~2020-07-30] VITALS: Ht 170.2 cm; Wt 99.0 kg
[~2020-07-30 09:49] MED LIST changes: -OMNIPAQUE 350 MG/ML, 100ML BOTTLE ONE
--- NOTE | 2020-07-30 10:09 | NUR ---
Ecg in triage for tachycardia
[2020-07-30] MEDS ORDERED: SODIUM CHLORIDE 0.9% 1,000ML IVBOLUS ONE (10:30)
[2020-07-30] MEDS ORDERED: ONDANSETRON 2MG/ML, 2ML IVPush ONE (10:30)
[2020-07-30] MEDS ORDERED: MORPHINE SULFATE 4 MG/ML, 1ML ONE ×2 (10:48→15:12)
[2020-07-30] MEDS ORDERED: ONDANSETRON 2MG/ML, 2ML ONE (10:48)
[2020-07-30] MEDS: MORPHINE SULFATE 4 MG/ML, 1ML IVPush PRN ×2 (10:51→15:17)
[2020-07-30 10:53] LABS: MEAN CORPUSCULAR HEMOGLOBIN 29.9 pg (27.0-34.8); MEAN CORPUSCULAR VOLUME 90.4 fL (80-100); MEAN PLATELET VOLUME 9.4 fL (7.4-10.4); PLATELET COUNT 321 x10^3/uL (130-400); RED BLOOD COUNT 5.16 x10^6/uL (3.82-5.3); RED CELL DISTRIBUTION WIDTH 13.4 % (9.6-15.2)
--- NOTE | 2020-07-30 11:04 | NUR ---
Pt medicated as ordered. Pt c/o epigastric dull pain since yesterday with nausea and no v/d. Pt has hx of pancreatitis and reports pain is similar. Pt drank alcohol over the weekend. ua collected and sent to the lab.
[2020-07-30 11:07] LABS: ALANINE AMINOTRANSFERASE 31 U/L (12-78); ALBUMIN 3.7 g/dL (3.4-5.0); ANION GAP 5 mmol/L (5-15); CHLORIDE 107 mmol/L (98-107); CREATININE 0.83 mg/dL (0.55-1.02)
[2020-07-30 11:12] LABS: ALKALINE PHOSPHATASE 95 U/L (45-117); BILIRUBIN,TOTAL 0.5 mg/dL (0.2-1.0)
[2020-07-30 11:18] LABS: BASOPHILS # (AUTO) 0.02 x10^3/uL (0-0.1); BASOPHILS % (AUTO) 0 % (0-1); EOSINOPHILS # (AUTO) 0.03 x10^3/uL (0-0.4); EOSINOPHILS % (AUTO) 0 % (1-7); LYMPHOCYTES % (AUTO) 10 % (22-44); MD SCAN; MONOCYTES % (AUTO) 4 % (2-9); NEUTROPHILS # (AUTO) 13.66 x10^3/uL (1.8-6.8); NEUTROPHILS % (AUTO) 86 % (42-75)
[2020-07-30 11:36] LABS: MICROSCOPIC INDICATED
--- NOTE | 2020-07-30 12:14 | NUR ---
CHART UP FOR MD RECHECK. PT AWARE.
[2020-07-30] MEDS ORDERED: METOCLOPRAMIDE 5 MG/ML, 2ML ONE (12:28)
--- NOTE | 2020-07-30 12:39 | NUR ---
PT MEDICATED WITH REGLAN PER [facility] PAC PRIOR TO CT DUE CONTRAST CAUSING NAUSEA PER PT.
[2020-07-30] MEDS ORDERED: OMNIPAQUE 350 MG/ML, 100ML BOTTLE ONE (12:57)
[2020-07-30] MEDS ORDERED: METOCLOPRAMIDE 5 MG/ML, 2ML IVPush ONE (13:00)
--- NOTE | 2020-07-30 13:21 | NUR ---
CHART UP FOR MD RECHECK. PT AWARE.
--- NOTE | 2020-07-30 13:34 | NUR ---
PT RESTING IN NAD. CHART UP FOR MD RECHECK.
[2020-07-30] MEDS ORDERED: MEROPENEM 1 GM in SODIUM CHLORIDE 0.9% 100 ML IV ONE (14:30)
[2020-07-30] MEDS ORDERED: MAGNESIUM SULFATE PMX 2GM/50ML 50 ML IV ONE (16:30)
[2020-07-30] MEDS ORDERED: DOCUSATE 100 MG CAPSULE PO PRN (16:30)
[2020-07-30] MEDS ORDERED: DIAZEPAM 5 MG/ML, 2ML IV PRN (16:30)
[2020-07-30] MEDS ORDERED: ACETAMINOPHEN 325 MG TABLET PO PRN (16:30)
[2020-07-30] MEDS ORDERED: ONDANSETRON 2MG/ML, 2ML IVPush PRN (16:30)
[2020-07-30] MEDS ORDERED: ONDANSETRON ODT 4 MG PO PRN (16:30)
[2020-07-30] MEDS: SODIUM CHLORIDE 0.9% 1,000 ML IV SCH (16:39)
[2020-07-30 16:55] VITALS: BP 106/71
[2020-07-30] MEDS: morphine SULFATE 10 MG/ML, 1ML IVPush PRN ×2 (19:24→22:59)
[2020-07-30 19:48] VITALS: BP 109/67
[2020-07-30] MEDS: MEROPENEM 1 GM in SODIUM CHLORIDE 0.9% 100 ML IV SCH (22:59)
[2020-07-31 01:54] VITALS: BP 102/67
[2020-07-31] MEDS: SODIUM CHLORIDE 0.9% 1,000 ML IV SCH ×2 (02:44→10:09)
[2020-07-31] MEDS: morphine SULFATE 10 MG/ML, 1ML IVPush PRN ×5 (04:11→22:14)
[2020-07-31 05:42] LABS: ALBUMIN 2.8 g/dL (3.4-5.0); CALCIUM 7.7 mg/dL (8.5-10.1); CHLORIDE 109 mmol/L (98-107)
[2020-07-31 05:47] LABS: ALANINE AMINOTRANSFERASE 22 U/L (12-78); ALKALINE PHOSPHATASE 78 U/L (45-117); ANION GAP 5 mmol/L (5-15); BILIRUBIN,TOTAL 0.8 mg/dL (0.2-1.0); CREATININE 0.78 mg/dL (0.55-1.02); TOTAL PROTEIN 6.7 g/dL (6.4-8.2)
[2020-07-31 05:51] LABS: BASOPHILS # (AUTO) 0.14 x10^3/uL (0-0.1); BASOPHILS % (AUTO) 1 % (0-1); EOSINOPHILS # (AUTO) 0.04 x10^3/uL (0-0.4); EOSINOPHILS % (AUTO) 0 % (1-7); LYMPHOCYTES # (AUTO) 1.69 x10^3/uL (1-3.4); LYMPHOCYTES % (AUTO) 13 % (22-44); MD NO; MEAN CORPUSCULAR HEMOGLOBIN 29.8 pg (27.0-34.8); MEAN CORPUSCULAR HGB CONC 32.8 g/dL (32.4-35.8); MEAN CORPUSCULAR VOLUME 90.6 fL (80-100); MEAN PLATELET VOLUME 9.9 fL (7.4-10.4); MONOCYTES # (AUTO) 0.87 x10^3/uL (0.2-0.8); MONOCYTES % (AUTO) 7 % (2-9); NEUTROPHILS # (AUTO) 10.58 x10^3/uL (1.8-6.8); NEUTROPHILS % (AUTO) 79 % (42-75); PLATELET COUNT 287 x10^3/uL (130-400); RED BLOOD COUNT 4.37 x10^6/uL (3.82-5.3); RED CELL DISTRIBUTION WIDTH 13.4 % (9.6-15.2)
[2020-07-31] MEDS: MEROPENEM 1 GM in SODIUM CHLORIDE 0.9% 100 ML IV SCH ×3 (06:47→23:54)
[2020-07-31] MEDS: PANTOPRAZOLE 40 MG IV IVPush SCH (07:43)
[2020-07-31 07:51] VITALS: BP 95/66
[2020-07-31 13:51] VITALS: BP 114/70
[2020-07-31] MEDS ORDERED: POTASSIUM PHOSPHATE 22 MEQ in SODIUM CHLORIDE 0.9% 500 ML IV ONE (14:30)
[2020-07-31 20:06] VITALS: BP 103/70
[2020-08-01 02:16] VITALS: BP 98/62
[2020-08-01] MEDS: morphine SULFATE 10 MG/ML, 1ML IVPush PRN ×5 (02:31→20:17)
[2020-08-01] MEDS: SODIUM CHLORIDE 0.9% 1,000 ML IV SCH ×2 (02:58→11:40)
[2020-08-01 05:21] LABS: MEAN CORPUSCULAR HEMOGLOBIN 30.1 pg (27.0-34.8); MEAN CORPUSCULAR VOLUME 91.1 fL (80-100); MEAN PLATELET VOLUME 9.6 fL (7.4-10.4); PLATELET COUNT 270 x10^3/uL (130-400); RED BLOOD COUNT 4.11 x10^6/uL (3.82-5.3); RED CELL DISTRIBUTION WIDTH 13.1 % (9.6-15.2)
[2020-08-01 05:22] LABS: CHLORIDE 110 mmol/L (98-107)
[2020-08-01 05:37] LABS: ANION GAP 7 mmol/L (5-15); CALCIUM 7.7 mg/dL (8.5-10.1); CREATININE 0.59 mg/dL (0.55-1.02)
[2020-08-01 06:36] LABS: BASOPHILS # (AUTO) 0.02 x10^3/uL (0-0.1); BASOPHILS % (AUTO) 0 % (0-1); EOSINOPHILS # (AUTO) 0.09 x10^3/uL (0-0.4); EOSINOPHILS % (AUTO) 1 % (1-7); LYMPHOCYTES % (AUTO) 22 % (22-44); MD SCAN; MONOCYTES # (AUTO) 0.72 x10^3/uL (0.2-0.8); MONOCYTES % (AUTO) 7 % (2-9); NEUTROPHILS # (AUTO) 7.48 x10^3/uL (1.8-6.8); NEUTROPHILS % (AUTO) 71 % (42-75)
[2020-08-01 07:03] VITALS: BP 101/69
[2020-08-01 08:52] VITALS: BP 111/73
[2020-08-01] MEDS: MEROPENEM 1 GM in SODIUM CHLORIDE 0.9% 100 ML IV SCH ×2 (08:58→16:57)
[2020-08-01] MEDS: PANTOPRAZOLE 40 MG IV IVPush SCH (08:58)
[2020-08-01 12:46] VITALS: BP 119/77
[2020-08-01] MEDS ORDERED: POTASSIUM PHOSPHATE 22 MEQ in SODIUM CHLORIDE 0.9% 500 ML IV ONE (14:00)
[2020-08-01] MEDS ORDERED: ONDANSETRON 2MG/ML, 2ML ONE (20:06)
[2020-08-01 20:25] VITALS: BP 113/73
[2020-08-01] MEDS ORDERED: ONDANSETRON 2MG/ML, 2ML IVPush PRN (20:30)
[2020-08-02] MEDS: MEROPENEM 1 GM in SODIUM CHLORIDE 0.9% 100 ML IV SCH ×3 (00:07→15:32)
[2020-08-02] MEDS: morphine SULFATE 10 MG/ML, 1ML IVPush PRN ×2 (00:08→04:01)
[2020-08-02 00:56] VITALS: BP 110/75
[2020-08-02] MEDS: SODIUM CHLORIDE 0.9% 1,000 ML IV SCH (03:59)
[2020-08-02 07:56] VITALS: BP 98/65
[2020-08-02] MEDS: PANTOPRAZOLE 40 MG IV IVPush SCH (08:49)
[2020-08-02 14:00] VITALS: BP 117/74
[2020-08-02 20:04] VITALS: BP 112/74
[2020-08-03] MEDS: MEROPENEM 1 GM in SODIUM CHLORIDE 0.9% 100 ML IV SCH ×2 (00:09→07:57)
[2020-08-03 01:27] VITALS: BP 107/68
[2020-08-03 05:34] LABS: BASOPHILS # (AUTO) 0.02 x10^3/uL (0-0.1); BASOPHILS % (AUTO) 0 % (0-1); EOSINOPHILS # (AUTO) 0.18 x10^3/uL (0-0.4); EOSINOPHILS % (AUTO) 2 % (1-7); LYMPHOCYTES # (AUTO) 1.79 x10^3/uL (1-3.4); LYMPHOCYTES % (AUTO) 22 % (22-44); MD NO; MEAN CORPUSCULAR HEMOGLOBIN 29.7 pg (27.0-34.8); MEAN CORPUSCULAR HGB CONC 32.9 g/dL (32.4-35.8); MEAN CORPUSCULAR VOLUME 90.3 fL (80-100); MONOCYTES # (AUTO) 0.43 x10^3/uL (0.2-0.8); MONOCYTES % (AUTO) 5 % (2-9); NEUTROPHILS % (AUTO) 71 % (42-75); PLATELET COUNT 344 x10^3/uL (130-400); RED BLOOD COUNT 4.37 x10^6/uL (3.82-5.3); RED CELL DISTRIBUTION WIDTH 12.8 % (9.6-15.2)
[2020-08-03 07:20] VITALS: BP 111/80
[2020-08-03] MEDS: PANTOPRAZOLE 40 MG IV IVPush SCH (07:57)
[2020-08-03] MEDS ORDERED: CEFDINIR 300 MG CAPSULE PO SCH (12:00)
[2020-08-03] MEDS ORDERED: metroNIDAZOLE 50 MG/ML ORAL.SUSP PO SCH (12:00)
[2020-08-03] MEDS ORDERED: metroNIDAZOLE 500 MG TABLET PO SCH (12:00)
[2020-08-03] MEDS ORDERED: CEFD300C37 PO (12:44)
[2020-08-03] MEDS ORDERED: METR500T PO (12:44)
[2020-08-03 13:45] VITALS: BP 112/79
== END 2020-08-03 14:16 | disposition home or self-care (01) | DRG 871 ==
LOC: ED 10:58 → 4NE 15:31 → ED 16:07 → DCLOUNGE 08-03 14:09
PROVIDERS: ADMIT Hospitalist; ATTEND Hospitalist
DX: A41.9 Sepsis, unspecified organism (principal); E43 Unspecified severe protein-calorie malnutrition; K85.00 Idiopathic acute pancreatitis without necrosis or infection; K86.3 Pseudocyst of pancreas; E11.65 Type 2 diabetes mellitus with hyperglycemia; K76.0 Fatty (change of) liver, not elsewhere classified; K80.20 Calculus of gallbladder without cholecystitis without obstruction; Z82.49 Family history of ischemic heart disease and other diseases of the circulatory system; Z90.49 Acquired absence of other specified parts of digestive tract; Z68.34 Body mass index [BMI] 34.0-34.9, adult
CPT/HCPCS: 36415; 74177; 76700; 80048; 80053; 81001; 83690; 83735; 84100; 84703; 85025; 87040; 93005; G0378; J2185; J2405; Q9967; C9113; J2270; J2765; J3475; J7030; J7040

== ENCOUNTER 2020-08-17 18:16 | Inpatient (IN) | payer OTHER ==
[~2020-08-17] VITALS: Ht 170.2 cm; Wt 96.0 kg
[2020-08-17 18:54] LABS: BASOPHILS % (AUTO) 0 % (0-1); EOSINOPHILS % (AUTO) 2 % (1-7); LYMPHOCYTES % (AUTO) 31 % (22-44); MEAN CORPUSCULAR HEMOGLOBIN 29.4 pg (27.0-34.8); MEAN CORPUSCULAR HGB CONC 32.6 g/dL (32.4-35.8); MEAN PLATELET VOLUME 9.1 fL (7.4-10.4); MONOCYTES % (AUTO) 7 % (2-9); NEUTROPHILS % (AUTO) 61 % (42-75); PLATELET COUNT 379 x10^3/uL (130-400); RED BLOOD COUNT 4.96 x10^6/uL (3.82-5.3); RED CELL DISTRIBUTION WIDTH 13.7 % (9.6-15.2)
[2020-08-17] MEDS ORDERED: SODIUM CHLORIDE FLUSH 10ML SYR IVF ONE ×2 (19:00→21:00)
[2020-08-17 19:04] LABS: ALANINE AMINOTRANSFERASE 47 U/L (12-78); ALBUMIN 3.5 g/dL (3.4-5.0); ANION GAP 4 mmol/L (5-15); CALCIUM 9.2 mg/dL (8.5-10.1); CHLORIDE 105 mmol/L (98-107); CREATININE 0.88 mg/dL (0.55-1.02)
[2020-08-17 19:08] LABS: ALKALINE PHOSPHATASE 87 U/L (45-117); BILIRUBIN,TOTAL 0.3 mg/dL (0.2-1.0); TOTAL PROTEIN 7.8 g/dL (6.4-8.2)
[2020-08-17 19:09] LABS: MD NO
--- NOTE | 2020-08-17 20:11 | NUR ---
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
[2020-08-17 20:31] LABS: MICROSCOPIC NOT IND
[2020-08-17] MEDS ORDERED: HYDROmorphone 2 MG/ML, 1ML IVPush PRN (21:00)
[2020-08-17] MEDS ORDERED: SODIUM CHLORIDE 0.9% 1,000ML IVBOLUS ONE (21:00)
[2020-08-17] MEDS ORDERED: ONDANSETRON 2MG/ML, 2ML IVPush ONE (21:00)
[2020-08-17] MEDS ORDERED: HYDROmorphone 1 MG/ML, 1ML INJ ONE (21:06)
[2020-08-17] MEDS ORDERED: ONDANSETRON 2MG/ML, 2ML ONE (21:06)
--- NOTE | 2020-08-17 21:27 | NUR ---
PT TO BE ADMITTED. PT MEDICATED PER JAN. PT REPORTS PAIN IMRPOVEMENT
[2020-08-17] MEDS ORDERED: HYDROcodone/APAP 5/325 TABLET PO PRN (22:00)
[2020-08-17] MEDS ORDERED: DOCUSATE 100 MG CAPSULE PO PRN (22:00)
[2020-08-17] MEDS ORDERED: ACETAMINOPHEN 325 MG TABLET PO PRN (22:00)
--- NOTE | 2020-08-17 22:05 | NUR ---
Assumed care at this time.
--- NOTE | 2020-08-17 22:11 | NUR ---
Report to Anniver RN [id number]
[2020-08-17 22:30] VITALS: BP 104/71
[2020-08-17] MEDS: SODIUM CHLORIDE 0.9% 1,000 ML IV SCH (22:41)
[2020-08-17] MEDS: HEPARIN 5,000 UNITS/ML, 1ML SQ SCH (22:42)
[2020-08-18] MEDS: morphine SULFATE 10 MG/ML, 1ML IVPush PRN ×2 (01:17→06:13)
[2020-08-18 04:35] VITALS: BP 96/54
[2020-08-18 05:43] LABS: BASOPHILS % (AUTO) 1 % (0-1); EOSINOPHILS % (AUTO) 2 % (1-7); LYMPHOCYTES % (AUTO) 35 % (22-44); MEAN CORPUSCULAR HEMOGLOBIN 29.5 pg (27.0-34.8); MEAN CORPUSCULAR HGB CONC 32.6 g/dL (32.4-35.8); MEAN PLATELET VOLUME 9.5 fL (7.4-10.4); MONOCYTES % (AUTO) 7 % (2-9); NEUTROPHILS % (AUTO) 55 % (42-75); PLATELET COUNT 332 x10^3/uL (130-400); RED BLOOD COUNT 4.29 x10^6/uL (3.82-5.3); RED CELL DISTRIBUTION WIDTH 13.2 % (9.6-15.2)
[2020-08-18 05:54] LABS: ANION GAP 5 mmol/L (5-15); CHLORIDE 110 mmol/L (98-107)
[2020-08-18 06:03] LABS: CALCIUM 7.8 mg/dL (8.5-10.1)
[2020-08-18 06:04] LABS: CREATININE 0.76 mg/dL (0.55-1.02)
[2020-08-18] MEDS: HEPARIN 5,000 UNITS/ML, 1ML SQ SCH ×3 (06:14→22:06)
[2020-08-18 06:23] LABS: MD NO
[2020-08-18 07:24] VITALS: BP 90/62
[2020-08-18] MEDS: ONDANSETRON 2MG/ML, 2ML IVPush PRN ×3 (07:38→20:28)
[2020-08-18] MEDS: SODIUM CHLORIDE 0.9% 1,000 ML IV SCH (07:41)
[2020-08-18] MEDS: MORPHINE SULFATE 4 MG/ML, 1ML IVPush PRN ×3 (13:47→21:05)
[2020-08-18 13:54] VITALS: BP 100/65
[2020-08-18] MEDS: HYDROcodone/APAP 5/325 TABLET PO PRN (17:50)
[2020-08-18 19:33] VITALS: BP 107/64
[2020-08-19] MEDS: HYDROcodone/APAP 5/325 TABLET PO PRN ×2 (00:17→13:47)
[2020-08-19 00:21] VITALS: BP 103/65
[2020-08-19 05:59] LABS: BASOPHILS % (AUTO) 1 % (0-1); EOSINOPHILS % (AUTO) 2 % (1-7); LYMPHOCYTES % (AUTO) 42 % (22-44); MEAN CORPUSCULAR HEMOGLOBIN 29.3 pg (27.0-34.8); MEAN CORPUSCULAR HGB CONC 32.3 g/dL (32.4-35.8); MEAN PLATELET VOLUME 9.8 fL (7.4-10.4); MONOCYTES % (AUTO) 7 % (2-9); NEUTROPHILS % (AUTO) 49 % (42-75); PLATELET COUNT 323 x10^3/uL (130-400); RED BLOOD COUNT 4.46 x10^6/uL (3.82-5.3); RED CELL DISTRIBUTION WIDTH 13.6 % (9.6-15.2)
[2020-08-19] MEDS: HEPARIN 5,000 UNITS/ML, 1ML SQ SCH ×3 (06:21→22:46)
[2020-08-19 06:23] LABS: MD NO
[2020-08-19 07:25] VITALS: BP 96/64
[2020-08-19] MEDS: SODIUM CHLORIDE 0.9% 1,000 ML IV SCH (09:00)
[2020-08-19] MEDS: MORPHINE SULFATE 4 MG/ML, 1ML IVPush PRN (09:26)
[2020-08-19] MEDS: ONDANSETRON 2MG/ML, 2ML IVPush PRN (09:26)
[2020-08-19 13:13] VITALS: BP 95/62
[2020-08-19] MEDS ORDERED: PROCHLORPERAZINE 5 MG/ML, 2ML IM PRN (15:30)
[2020-08-19] MEDS ORDERED: PROCHLORPERAZINE 5 MG/ML, 2ML IVPush PRN (15:30)
[2020-08-19 21:23] VITALS: BP 92/58
[2020-08-20] MEDS: SODIUM CHLORIDE 0.9% 1,000 ML IV SCH ×2 (01:10→06:42)
[2020-08-20 03:22] VITALS: BP 90/57
[2020-08-20] MEDS: HEPARIN 5,000 UNITS/ML, 1ML SQ SCH (06:36)
[2020-08-20 07:10] VITALS: BP 99/66
[2020-08-20 12:43] VITALS: BP 105/67
== END 2020-08-20 13:18 | disposition home or self-care (01) | DRG 439 ==
LOC: ED 20:43 → EDIP 21:17 → 4NE 22:25 → DCLOUNGE 08-20 13:16
PROVIDERS: ADMIT Family Medicine; ATTEND Internal Medicine
DX: K85.00 Idiopathic acute pancreatitis without necrosis or infection (principal); K86.3 Pseudocyst of pancreas; R16.1 Splenomegaly, not elsewhere classified; I95.9 Hypotension, unspecified; E66.9 Obesity, unspecified; Z68.33 Body mass index [BMI] 33.0-33.9, adult; Z90.49 Acquired absence of other specified parts of digestive tract; Z82.49 Family history of ischemic heart disease and other diseases of the circulatory system; Z83.3 Family history of diabetes mellitus
CPT/HCPCS: 36415; 76700; 80048; 80053; 81003; 83690; 84478; 84703; 85025; G0378; J1170; J1644; J2405; J0780; J2270; J7030